=== PATIENT | female | born 1965 | race Caucasian/White ===

== ENCOUNTER → 2017-09-21 11:06 | Outpatient (CLI) | payer OTHER, SELFPAY ==
[2017-09-21 13:03] LABS: T4 Free Direct 1.14 ng/dL (0.76-1.46); Thyroid Stim Hormone (TSH) 0.15 uIU/mL (0.358-3.74)
== END ==
PROVIDERS: Family Provider Family Medicine; PCP Family Medicine; Visit Provider Family Medicine
DX: E03.9 Hypothyroidism, unspecified (principal); F41.9 Anxiety disorder, unspecified
CPT/HCPCS: 36415; 84439; 84443

== ENCOUNTER → 2017-12-16 11:02 | Outpatient (CLI) | payer OTHER, SELFPAY ==
[2017-12-16 12:52] LABS: T4 Free Direct 1.03 ng/dL (0.76-1.46); Thyroid Stim Hormone (TSH) 2.07 uIU/mL (0.358-3.74)
== END ==
PROVIDERS: Nurse Practitioner Family; Family Provider Family Medicine; PCP Family Medicine; Referring Provider Family Medicine; Visit Provider Family Medicine
DX: E03.9 Hypothyroidism, unspecified (principal)
CPT/HCPCS: 36415; 84439; 84443

== ENCOUNTER → 2018-10-17 11:37 | Outpatient (CLI) | payer OTHER, SELFPAY ==
[2018-10-17 11:07] VITALS: BMI 21.6
[2018-10-17 13:25] LABS: Anion Gap 7 (5-15); BUN 15 mg/dL (7-18); BUN/Creat Ratio 17.7 RATIO (10-20); Calcium,Total 8.8 mg/dL (8.5-10.1); Chloride 106 mmol/L (98-107); Creatinine, Serum 0.85 mg/dL (0.55-1.02); EST Glomerular Filtration Rate 74 mL/min (>60); Est Glom Filt Rate - Afr Amer 90 mL/min (>60); Glucose 85 mg/dL (74-106); Potassium 3.9 mmol/L (3.5-5.1); Sodium Level 141 mmol/L (136-145); Thyroid Stim Hormone (TSH) 1.68 uIU/mL (0.358-3.74)
== END ==
PROVIDERS: Family Provider Family Medicine; PCP Family Medicine; Visit Provider Family Medicine
DX: E03.9 Hypothyroidism, unspecified (principal)
CPT/HCPCS: 36415; 80048; 84443

== ENCOUNTER → 2018-10-19 11:46 | Outpatient (CLI) | payer OTHER, SELFPAY ==
[2018-10-17 11:07] VITALS: BMI 21.6
--- NOTE | 2018-10-19 11:50 | BI_ITS ---
MAMMOGRAPHY - BILATERAL SCREENING REASON FOR EXAM: Female, 53 years old. Routine annual screening examination. PERTINENT HISTORY: Non-contributory. TECHNIQUE: Digital bilateral breast loi (3D mammographic acquisition) in the CC and MLO projections. 2-D mediolateral oblique (MLO) and craniocaudad (CC) views of both breasts were obtained. CAD: Full Field Digital Mammography with Computer Added Detection was performed. COMPARISON: Comparison is made with prior study in August 23, 2016 and July 24, 2015. FINDINGS: Breast Composition: The breasts are heterogeneously dense, which may obscure small masses. There are no dominant masses or suspicious calcifications. No other significant abnormalities are identified. There has been no significant change since the prior study. BI/SCREEN MAMM (CAD) W/LOI BILAT IMPRESSION: Stable bilateral screening mammogram. Yearly follow-up mammogram recommended. (A) ASSESSMENT CATEGORY: BIRADS Category 1: Negative. A letter regarding these results will be sent to the patient by the facility within 30 days. Approximately 10% of breast cancers are not detected by mammography. A normal mammogram should not delay biopsy of a clinically suspicious abnormality. [id number] Electronically Signed: Андрей Quan, at 13:54 EDT , Service support ,
== END ==
PROVIDERS: Family Provider Family Medicine; PCP Family Medicine; Referring Provider Family Medicine; Visit Provider Family Medicine
DX: Z12.31 Encounter for screening mammogram for malignant neoplasm of breast (principal)
CPT/HCPCS: 77063; 77067

== ENCOUNTER → 2019-11-07 14:25 | Outpatient (CLI) | payer OTHER, SELFPAY ==
[2019-11-07 14:04] VITALS: BMI 21.6
[2019-11-07 15:52] LABS: Anion Gap 5 (5-15); BUN 17 mg/dL (7-18); BUN/Creat Ratio 20.1 RATIO (10-20); Calcium,Total 9.3 mg/dL (8.5-10.1); Chloride 104 mmol/L (98-107); Creatinine, Serum 0.84 mg/dL (0.55-1.02); EST Glomerular Filtration Rate 74 mL/min (>60); Est Glom Filt Rate - Afr Amer 90 mL/min (>60); Glucose 103 mg/dL (74-106); Potassium 3.8 mmol/L (3.5-5.1); Sodium Level 138 mmol/L (136-145); T4 Free Direct 1.07 ng/dL (0.76-1.46); Thyroid Stim Hormone (TSH) 2.41 uIU/mL (0.358-3.74)
== END ==
PROVIDERS: PCP Family Medicine; Referring Provider Family Medicine; Visit Provider Family Medicine
DX: E03.9 Hypothyroidism, unspecified (principal)
CPT/HCPCS: 36415; 80048; 84439; 84443

== ENCOUNTER → 2020-11-12 14:23 | Outpatient (CLI) | payer OTHER, SELFPAY ==
[2020-11-12 16:02] LABS: Anion Gap 6 (5-15); BUN 24 mg/dL (7-18); BUN/Creat Ratio 23.5 RATIO (10-20); Calcium,Total 9.5 mg/dL (8.5-10.1); Chloride 107 mmol/L (98-107); Creatinine, Serum 1.02 mg/dL (0.55-1.02); EST Glomerular Filtration Rate 59 mL/min (>60); Est Glom Filt Rate - Afr Amer 72 mL/min (>60); Glucose 131 mg/dL (74-106); Sodium Level 140 mmol/L (136-145); T4 Free Direct 1.11 ng/dL (0.76-1.46); Thyroid Stim Hormone (TSH) 0.83 uIU/mL (0.358-3.74)
== END ==
PROVIDERS: PCP Family Medicine; Referring Provider Family Medicine; Visit Provider Family Medicine
DX: E03.9 Hypothyroidism, unspecified (principal)
CPT/HCPCS: 36415; 80048; 84439; 84443

== ENCOUNTER 2021-05-26 10:23 | Outpatient (CLI) | payer OTHER, SELFPAY ==
--- NOTE | 2021-05-26 10:27 | BI_ITS ---
MAMMOGRAPHY - BILATERAL SCREENING 3-D TOMOSYNTHESIS REASON FOR EXAM: Female, 56 years old. screening PERTINENT HISTORY: No significant family history. TECHNIQUE: 2-D mammograms and 3-D Tomosynthesis of the breast (s) were performed. CAD was performed. COMPARISON: None. FINDINGS: The breast composition is composed of scattered fibroglandular density. Scattered benign calcifications are seen. No dense spiculated masses or suspicious microcalcifications are identified. No architectural distortion is identified. There is no skin thickening or retraction. There has been no significant change since the prior study. BI/SCRN MAMM (CAD)W/LOI BILAT IMPRESSION: No mammographic signs of malignancy. Routine yearly mammograms recommended. ASSESSMENT CATEGORY: BIRADS Category 1: Negative. A letter regarding these results will be sent to the patient by the facility within 30 days. FOLLOW UP RECOMMENDATION: Yearly follow up mammogram recommended. (A) Approximately 10% of breast cancers are not detected by mammography. A normal mammogram should not delay biopsy of a clinically suspicious abnormality. Electronically Signed: Cirilo Craig MD at 11:28 EDT ,
== END 2021-05-26 23:59 | disposition home or self-care (01) ==
LOC: OPBI 10:26
PROVIDERS: PCP Family Medicine; Referring Provider Family Medicine; Visit Provider Family Medicine
DX: Z12.31 Encounter for screening mammogram for malignant neoplasm of breast (principal)
CPT/HCPCS: 77063; 77067

== ENCOUNTER 2021-08-22 10:42 | Emergency (ER) | payer OTHER, SELFPAY ==
[2021-08-22 10:43] VITALS: BP 179/91; PULSE 101; RESP 16; TEMP 36.8; O2SAT 99; BMI 21.6
--- NOTE | 2021-08-22 11:06 | RAD_ITS ---
STUDY: X-RAY - RIGHT SHOULDER REASON FOR EXAM: Female, 56 years old. Pain TECHNIQUE: 5 view(s) of the shoulder. COMPARISON: None. FINDINGS: Normal glenohumeral articulation. Normal acromioclavicular joint. Normal acromion. Normal humeral head and visualized proximal humerus. There is periarticular soft tissue calcification consistent with a calcific tendinitis. Normal visualized pulmonary apex. RAD/Shoulder min 2 Views IMPRESSION: Calcific tendinitis. Electronically Signed: Payal Ardon MD at 12:47 EDT ,
--- NOTE | 2021-08-22 11:06 | EDS_ITS ---
HPI History of Present Illness Chief Complaint: Upper Extremity Injury Narrative Narrative: 56-year-old female presenting with pain in the right shoulder. This is nontraumatic. Patient states that has been going on for couple of days. Patient states the pain is in the anterior shoulder and sometimes radiates to the deltoid. She states she thought she may have slept on it wrong. Sometimes she feels as if her shoulder is just hanging. She has difficulty with range of motion. No numbness. No neck pain. Patient does state that she had a fall a year ago and injured the shoulder and it felt similar. She denies any injury currently. [facility] Medical History Allergies Anemia Anxiety and depression Back pain Blood transfusion without reported diagnosis H/O emotional problems History of blood clots HTN (hypertension) Hypothyroid Knee pain Neoplasm of unspecified behavior of digestive system Thyroid disease Home Medications diazepam 5 mg tablet (Valium) 5 mg PO QHS PRN sleep #5 tabs 08/29/20 [Rx Last Taken Unknown] levothyroxine 88 mcg capsule 88 mcg PO QDAY #90 caps 05/13/21 [Rx Last Taken Unknown] lorazepam 0.5 mg tablet 0.5 mg PO DAILY PRN anxiety #30 tabs 05/13/21 [Rx Last Taken Unknown] Allergy/AdvReac Type Severity Reaction Status Date / Time venlafaxine [From Effexor] Allergy Unknown Heart Verified 05/13/21 10:08 Racing Family History Father Lung cancer Mother Parkinson disease Sister Thyroid disorder Other Anxiety Depression Family history of skin cancer History of blood clots History of blood transfusion Hypertension Surgical History History of History of D&C History of hernia repair History of tonsillectomy Hx of knee surgery Social History Smoking Status: Never smoker alcohol intake: never substance use type: does not use what type of physical activity do you participate in: walking frequency: 1-2 times per week additional social history: Does Take Aspirin Does Take Ibuprofen As Needed EXAM Physical Exam Const Vital Signs: 07/16/22 10:43 Temperature 98.3 F Temperature Source Temporal Pulse Rate 101 H Respiratory Rate 16 Blood Pressure 179/91 H Blood Pressure Mean 120 Pulse Ox 99 Oxygen Delivery Method Room Air Positive well nourished General Appearance ED: NAD HEENT Reports moist mucous membranes normocephalic and atraumatic Eyes PERRL Neck full ROM Chest Wall inspection of chest normal and palpation of chest normal Resp normal respiratory effort Cardio regular rate and regular rhythm Back/Spine Cervical Spine: Negative for cervical spine tenderness Extremity Extremity Narrative: Tenderness to palpation over the right anterior shoulder along the bicipital groove. There is no pain or palpated over the deltoid although she reports the feeling of pain in this area. No tenderness in the trapezius. Cervical spine is nontender. Limited range of motion in flexion, extension, abduction. Neuro oriented x3 and CN's II-XII intact bilaterally Sensorium / Orientation: alert Psych mental status grossly normal Skin Lesions: no lesions Rashes: no rashes MDM MDM MDM Narrative Medical decision making narrative: Patient with pain in the anterior right shoulder. She does not want a thing for pain. I obtained an x-ray of the right shoulder which on my interpretation shows no fracture or subluxation. Radiologist read just as a calcific tendinitis. Patient counseled on findings. I will give her an orthopedic referral. She is to use NSAIDs and Tylenol. Ice and rest. Impression: 1. Calcific tendinitis Lab Data Attestation: I reviewed the patient's lab results. Discharge Plan Triage Chief Complaint: Upper Extremity Injury ED Provider: Ruslan Colon Dx/Rx/DC Orders Instructions: ED Tendonitis Prescriptions: No Action diazepam [Valium] 5 mg tablet 5 mg PO QHS PRN (Reason: sleep) Qty: 5 0RF Rx Instructions: 5 tabs (five) lorazepam 0.5 mg tablet 0.5 mg PO DAILY PRN (Reason: anxiety) Qty: 30 1RF levothyroxine 88 mcg capsule 88 mcg capsule 88 mcg PO QDAY Qty: 90 2RF Primary Care Provider: Alex Gomez Referrals: Alex Gomez DO [Primary Care Provider] - Rivas Garcia MD [STAFF PHYSICIAN] - As soon as possible Disposition Disposition: Home, Self Care
== END 2021-08-22 13:01 | disposition home or self-care (01) ==
PROVIDERS: Emergency Provider Student in an Organized Health Care Education/Training Program; PCP Family Medicine; Visit Provider Student in an Organized Health Care Education/Training Program
DX: M75.31 Calcific tendinitis of right shoulder (principal); F41.9 Anxiety disorder, unspecified; F32.A Depression, unspecified; Z86.718 Personal history of other venous thrombosis and embolism; E03.9 Hypothyroidism, unspecified; Z79.899 Other long term (current) drug therapy
CPT/HCPCS: 73030; 99282

== ENCOUNTER 2021-09-15 15:00 | Outpatient (RCR) | payer OTHER, SELFPAY ==
--- NOTE | 2021-08-28 14:22 | HP.PTEVAL_ITS ---
Patient's Visit Information PAULINE ALLEN is a 56 year old F referred to Physical Therapy by Dr. Rivas Garcia MD with a diagnosis of R sprain of RC, weakness, R shld pain. Date of Evaluation: 08/28/21 Physical Therapist: CHELSIE Whitaker - Visit Plan Frequency: 2x /Week Duration: 6 Weeks Plan: 2-3X/ week for 4-6 weeks for R shoulder AAROM/PROM/AROM, scapular strength, RC strength, MT with HEP. HEP: green mid rows - Subjective Her R shoulder pain was diagnosed with calcific tendonitis. She fell last year and landed on her shoulder and thinks that it stems from that. She was told her bursea was burst but RC was in tact. She woke up randomly this weekend with pain and not sure what she did. Sometimes she does wake up with arms overhead and hard to bring back down. She ended up in the ER Tuesday morning cause her Dr said to go due to her sx. Her R shoulder was really swollen and it was hard to move her shoulder and thought it could have been dislocated. They took some x-rays and then she went to see an ortho surgeon. Dr Garcia did the x-rays and he said sprain of R RC, weakness, and pain in R shoulder. Swelling has gone down. - Pain r shoulder pain Pain Intensity (Out of 10): 0 Pain Intensity Range: 3 Comment: with movement - Objective R handed: R 55# and L 59#. C-spine AROM: WFL c-spine AROM all planes. UE AROM: R shoulder flexion 140 degrees and pain at end range and L shoulder degrees. shoulder IR T8 B. B shoulder ER R 50 degrees and L 55 degrees. 163 R shoulder AROM ABD and L shoulder 180 degrees. UE MMT: R shoulder flex 9# and L 13.5#, R shoulder abd 7.2# and L 11.3#, and R shoulder ER 9.6# and L 13.1#. palpation: tender under the R acromion. no tenderness along the bicep tendon. - Balance/Special Test Scores Quick DASH Score: 56.8175 - Goals Goal 1:: I HEP Goal Time Frame: 4-6 Weeks Goal 2:: Increase R shoulder strength (at time of the eval: UE MMT: R shoulder flex 9# and L 13.5#, R shoulder abd 7.2# and L 11.3#, and R shoulder ER 9.6# and L 13.1#). Goal Time Frame: 4-6 Weeks Goal 3:: Increase R shoulder elevation (at the time of the eval: R shoulder flexion 140 degrees and pain at end range and L shoulder [id number] degrees. shoulder IR T8 B. B shoulder ER R 50 degrees and L 55 degrees. 163 R shoulder AROM ABD and L shoulder 180 degrees) Goal Time Frame: 4-6 Weeks Goal 4:: Decrease R shoulder pain to 0/10 with normal ADL's Goal Time Frame: 4-6 Weeks - Rehabilitation Potential Rehabilitation Potential: Good - Anticipated Interventions For the Purpose of:: To decrease pain, To decrease swelling/inflammation, To improve muscle performance and motor function, To improve ability to perform ADL's, To increase tolerance to activity/condition/position, To improve performance and independence with ADL's, To decrease level of supervision to perform tasks, To improve ability of physical actions for home/community/work/leisure, To improve health of tissue, To decrease soft tissue restriction, To increase flexibility/ROM Therapeutic Exercise to Include: Strength training, Postural training, Flexibilty training, Passive ROM, Active ROM, Scapular Strength/Stabilization For the Purpose of:: To decrease pain, To decrease swelling/inflammation, To increase ROM, To improve nutrient delivery to tissue, To improve muscle performance and motor function, To improve ability to perform ADL's, To increase tolerance to activity/condition/position, To improve performance and independence with ADL's, To decrease level of supervision to perform tasks, To improve ability of physical actions for home/community/work/leisure, To improve health of tissue, To decrease soft tissue restriction, To increase flexibility/ROM Manual Therapy Techniques to Include: Mobilization, Passive ROM For the Purpose of:: To decrease pain, To increase ROM, To improve nutrient delivery to tissue Thank you for the opportunity to evaluate your patient. For Medicare and Medicare HMO plans, please review the plan of care and approve it. It will need to be FAXED BACK to us at [phone] for Medicare purposes. For Medicare only, by signing this I certify the plan of care. Please let me know if there are questions or concerns regarding this plan of care. Physician Signature:____ Date:
--- NOTE | 2021-11-02 10:58 | HP.PT.NRP ---
PAULINE ALLEN was seen in my office for initial evaluation on 08/28/21. The following Plan of Care was established for this patient: Initial Frequency: 2x /Week Initial Duration: 6 Weeks For the Purpose of:: To decrease pain, To decrease swelling/inflammation, To improve muscle performance and motor function, To improve ability to perform ADL's, To increase tolerance to activity/condition/position, To improve performance and independence with ADL's, To decrease level of supervision to perform tasks, To improve ability of physical actions for home/community/work/leisure, To improve health of tissue, To decrease soft tissue restriction, To increase flexibility/ROM Therapeutic Exercise to Include: Strength training, Postural training, Flexibilty training, Passive ROM, Active ROM, Scapular Strength/Stabilization For the Purpose of:: To decrease pain, To decrease swelling/inflammation, To increase ROM, To improve nutrient delivery to tissue, To improve muscle performance and motor function, To improve ability to perform ADL's, To increase tolerance to activity/condition/position, To improve performance and independence with ADL's, To decrease level of supervision to perform tasks, To improve ability of physical actions for home/community/work/leisure, To improve health of tissue, To decrease soft tissue restriction, To increase flexibility/ROM Manual Therapy Techniques to Include: Mobilization, Passive ROM For the Purpose of:: To decrease pain, To increase ROM, To improve nutrient delivery to tissue This patient was last seen in our office 09/15/21. Pertinent comments regarding their Physical therapy will appear below: [facility] PT as pt did not schedule additional visits. At this point I will be discontinuing this patient from physical therapy. I would be happy to see this patient again in the future if found appropriate by the physician. Thank you! Fela Schneider, MPT Balance/Gait/Functional tests - Balance/Special Test Scores Quick DASH Score: 56.8186
== END 2021-09-15 19:00 | disposition home or self-care (01) ==
LOC: PT 15:00
PROVIDERS: PCP Family Medicine; Referring Provider Specialist; Visit Provider Specialist
DX: S43.421D Sprain of right rotator cuff capsule, subsequent encounter (principal); R53.1 Weakness; M25.511 Pain in right shoulder
CPT/HCPCS: 97110; 97161

== ENCOUNTER → 2021-11-10 | Outpatient (CLI) | payer OTHER, SELFPAY ==
[2021-11-10 12:16] LABS: Hematocrit 42.2 % (37-47); Hemoglobin 13.7 g/dL (12.0-15.0); Mean Corp Hgb Conc 32.5 g/dL (32-36); Mean Corpuscular Hgb 29.3 pg (27.0-32.0); Mean Corpuscular Volume 90.4 fL (81-99); Mean Platelet Vol. 9.5 fl (6.2-12.0); Platelet Count 315 K/mm3 (150-450); RBC Distribution Width CV 12.9 % (11.6-14.6); RBC Distribution Width SD 42.5 fl (35.1-43.9); Red Blood Count 4.67 M/mm3 (4.2-5.4); White Blood Count 5.2 K/mm3 (4.4-11.0)
[2021-11-10 14:28] LABS: Anion Gap 4 (5-15); BUN 16 mg/dL (7-18); BUN/Creat Ratio 17.9 RATIO (10-20); Calcium,Total 9.6 mg/dL (8.5-10.1); Chloride 106 mmol/L (98-107); EST Glomerular Filtration Rate 69 mL/min (>60); Est Glom Filt Rate - Afr Amer 83 mL/min (>60); Glucose 91 mg/dL (74-106); Potassium 4.5 mmol/L (3.5-5.1); Sodium Level 140 mmol/L (136-145); Thyroid Stim Hormone (TSH) 1.68 uIU/mL (0.358-3.74)
[2021-11-15 18:07] LABS: Chlamydia By Nucleic Acid AMP Negative (Negative)
[2021-11-16 16:17] LABS: Gonococcus By Nucleic Acid AMP Negative (Negative)
[2021-11-16 16:18] LABS: HPV Reflexed? NOT INDICATED
== END | disposition home or self-care (01) ==
LOC: BIMLAB 10:08
PROVIDERS: PCP Family Medicine; Referring Provider Family Medicine; Visit Provider Family Medicine
DX: Z01.419 Encounter for gynecological examination (general) (routine) without abnormal findings (principal); E03.9 Hypothyroidism, unspecified
CPT/HCPCS: 36415; 80048; 84443; 85027; 87491; 87591; 88175; G0145

== ENCOUNTER → 2022-07-02 | Outpatient (CLI) | payer OTHER, SELFPAY ==
--- NOTE | 2022-07-02 09:11 | BI_ITS ---
MAMMOGRAPHY - BILATERAL SCREENING REASON FOR EXAM: Female, 57 years old. Routine annual screening examination. PERTINENT HISTORY: Non-contributory. TECHNIQUE: Digital bilateral breast loi (3D mammographic acquisition) in the CC and MLO projections. 2-D mediolateral oblique (MLO) and craniocaudad (CC) views of both breasts were obtained. CAD: Full Field Digital Mammography with Computer Added Detection was performed. COMPARISON: Screening mammogram from 05/26/2021, 10/19/2018. FINDINGS: Breast Composition: There are scattered areas of fibroglandular density. There are no dominant masses or suspicious calcifications. No other significant abnormalities are identified. BI/SCRN MAMM (CAD)W/LOI BILAT IMPRESSION: Stable bilateral screening mammogram. Yearly follow-up mammogram recommended. (A) ASSESSMENT CATEGORY: BIRADS Category 1: Negative. A letter regarding these results will be sent to the patient by the facility within 30 days. Approximately 10% of breast cancers are not detected by mammography. A normal mammogram should not delay biopsy of a clinically suspicious abnormality. Electronically Signed: Hilario Zambrano DO at 16:30 EDT ,
== END | disposition home or self-care (01) ==
LOC: OPBI 09:11
PROVIDERS: PCP Family Medicine; Referring Provider Family Medicine; Visit Provider Family Medicine
DX: Z12.31 Encounter for screening mammogram for malignant neoplasm of breast (principal)
CPT/HCPCS: 77063; 77067

== ENCOUNTER → 2023-01-05 | Outpatient (CLI) | payer OTHER, SELFPAY ==
[2023-01-05 13:07] LABS: Anion Gap 7 (5-15); BUN 20 mg/dL (7-18); BUN/Creat Ratio 20.8 RATIO (10-20); Calcium,Total 8.7 mg/dL (8.5-10.1); Chloride 105 mmol/L (98-107); Creatinine, Serum 0.96 mg/dL (0.55-1.02); EST Glomerular Filtration Rate 63 mL/min (>60); Est Glom Filt Rate - Afr Amer 76 mL/min (>60); Glucose 97 mg/dL (74-106); Potassium 4.2 mmol/L (3.5-5.1); Sodium Level 141 mmol/L (136-145); Thyroid Stim Hormone (TSH) 6.89 uIU/mL (0.358-3.74)
== END | disposition home or self-care (01) ==
LOC: BIMLAB 10:21
PROVIDERS: PCP Family Medicine; Referring Provider Family Medicine; Visit Provider Family Medicine
DX: E03.9 Hypothyroidism, unspecified (principal)
CPT/HCPCS: 36415; 80048; 84443

== ENCOUNTER → 2023-07-05 | Outpatient (CLI) | payer OTHER, SELFPAY ==
--- NOTE | 2023-07-05 10:06 | BI_ITS ---
MAMMOGRAPHY - BILATERAL SCREENING REASON FOR EXAM: Female, 58 years old. Routine annual screening examination. PERTINENT HISTORY: Non-contributory. TECHNIQUE: Digital bilateral breast loi (3D mammographic acquisition) in the CC and MLO projections. 2-D mediolateral oblique (MLO) and craniocaudad (CC) views of both breasts were obtained. CAD: Full Field Digital Mammography with Computer Added Detection was performed. COMPARISON: Comparison is made with prior study dated July 02, 2022 and May 26, 2021. FINDINGS: Breast Composition: There are scattered areas of fibroglandular density. There are no dominant masses or suspicious calcifications. No other significant abnormalities are identified. There has been no significant change since the prior study. BI/SCRN MAMM (CAD)W/LOI BILAT IMPRESSION: Stable bilateral screening mammogram. Yearly follow-up mammogram recommended. (A) ASSESSMENT CATEGORY: BIRADS Category 1: Negative. A letter regarding these results will be sent to the patient by the facility within 30 days. Approximately 10% of breast cancers are not detected by mammography. A normal mammogram should not delay biopsy of a clinically suspicious abnormality. [id number] Electronically Signed: Андрей Quan MD at 12:51 EDT ,
== END | disposition home or self-care (01) ==
LOC: OPBI 10:05
PROVIDERS: PCP Family Medicine; Visit Provider Family Medicine
DX: Z12.31 Encounter for screening mammogram for malignant neoplasm of breast (principal)
CPT/HCPCS: 77063; 77067

== ENCOUNTER → 2024-01-10 | Outpatient (CLI) | payer OTHER, SELFPAY ==
[2024-01-10 12:49] LABS: Anion Gap 7 (5-15); BUN 20 mg/dL (7-18); BUN/Creat Ratio 22.4 RATIO (10-20); Calcium,Total 9.7 mg/dL (8.5-10.1); Chloride 104 mmol/L (98-107); Creatinine, Serum 0.89 mg/dL (0.55-1.02); EST Glomerular Filtration Rate 69 mL/min (>60); Est Glom Filt Rate - Afr Amer 83 mL/min (>60); Glucose 97 mg/dL (74-106); Potassium 4.6 mmol/L (3.5-5.1); Sodium Level 137 mmol/L (136-145); T4 Free Direct 1.19 ng/dL (0.76-1.46); Thyroid Stim Hormone (TSH) 0.402 uIU/mL (0.358-3.740)
== END | disposition home or self-care (01) ==
LOC: BIMLAB 10:31
PROVIDERS: PCP Family Medicine; Referring Provider Family Medicine; Visit Provider Family Medicine
DX: E03.9 Hypothyroidism, unspecified (principal)
CPT/HCPCS: 36415; 80048; 84439; 84443

== ENCOUNTER → 2024-07-23 | Outpatient (CLI) | payer BC, SELFPAY ==
--- NOTE | 2024-07-23 08:30 | BI_ITS ---
EXAM: SCRN MAMM (CAD)W/LOI BILAT DATE: 07/23/2024 CLINICAL HISTORY: F, Age 59 y/o , SCREENING No family history. BREAST CANCER RISK ASSESSMENT: Not assessed. TECHNIQUE: Bilateral screening digital breast tomosynthesis with 2D and 3D images. Computer aided detection. COMPARISON: Prior exam(s) dated July 05, 2023.. FINDINGS: TISSUE DENSITY: The breast tissue is composed of scattered areas of fibroglandular density. Bilateral Breast Mammographic Findings: No significant masses, calcifications or other abnormalities are identified. No suspicious masses, areas of developing architectural distortion, or suspicious calcifications. There has been no significant interval change. BI/SCRN MAMM (CAD)W/LOI BILAT IMPRESSION: OVERALL FINAL ASSESSMENT: BIRADS 1 NEGATIVE RECOMMENDATION: Routine annual follow-up in 1 Year A letter with findings and recommendations will be mailed to the patient. Reading Location: [place] [id number]
--- OUTSIDE RECORDS SUMMARY | 2024-07-23 10:29 | XMS RPT_ITS | CCD ---
Author Organization [facility] CliniSyms Care Team Providers Care Commercial Lines Underwriter Name Role Phone JAIME RAJPUT Attending Unavail able JESSICA GOMEZ Primary Care Unavailable Jessica Gomez Primary Care Provider Dr. Jessica Gomez Primary Care Provider Dr. Jessica Gomez Attending Provider Dr. Jessica Gomez Referring Provider Dr. Jessica Gomez Primary Care Provider [phone] Dr. Jessica Gomez Attending Provider [phone] Dr. Jessica Gomez Referring Provider [phone] Dr. Jessica Gomez Primary Care Provider [phone] Dr. Jessica Gomez Attending Provider Dr. Jessica Gomez Referring Provider [phone] Dr. Jessica Gomez Primary Care Provider [phone] Dr. Jessica Gomez Attending Provider [phone] Dr. Jessica Gomez Referring Provider [phone] Dr. Jessica Gomez Primary Care Provider [phone] Dr. Jessica Gomez Attending Provider [phone] Dr. Jessica Gomez Referring Provider Dr. Jessica Gomez DO Primary Care Provider [phone] Dr. Jessica Gomez DO Attending Provider [phone] Dr. Jessica Gomez DO Referring Provider [phone] Jessica Gomez Referring Unavailable Jessica Gomez Primary Care Unavailable Jessica Gomez Attending Unavailable Brown, Jessica R Referring Unavailable Brown, Jessica R Primary Care Unavailable BrownJessica R Attending Unavailable Brown, Jessica R Referring Unavailable Brown, Jessica R Primary Care Unavailable Brown, Jessica R Attending Unavailable Brown, Jessica R Referring Unavailable Brown, Jessica R Primary Care Unavailable BrownJessica R Attending Unavailable Allergies Allergy Classification Reported Allergen(s) Allergy Type Date of Onset Reaction(s) Facility (3 sources) venlafaxine; Translations: [VENLAFAXINE HCL] Drug Allergy 12-31-2005 [facility] Repository (6 sources) venlafaxine Drug Allergy 05-13-2021 Heart Racing [facility] (1 source) venlafaxine Drug Allergy 07-17-2024 [facility] Repository Medications Current Medications Medication Drug Class(es) Dates Sig (Normalized) Sig (Original) levothyroxine sodium 0.1 mg oral capsule (20 sources) l-Thyroxine Start: 01-06-2023 End: 07-10-2024 take 1 capsule by mouth once daily Levothyroxine 100 mcg capsule Active 100 ug PO daily July 10, 2024 8:13am Start: 01-06-2023 levothyroxine 88 mcg capsule Active 100 MCG PO daily January 06, 2023 8:28am Start: 01-09-2020 take 1 tablet by carlee th once daily Euthyrox 88 mcg tablet Take 88 mcg by mouth daily . 0 01/09/2020 Active Start: 09-23-2017 End: 01-06-2023 take 1 capsule by mouth once daily Levothyroxine 88 mcg capsule Discontinued 88 ug PO daily November 14, 2019 1:33pm November 12, 2020 2:15pm Start: 07-28-2017 End: 10-17-2018 take 1 capsule by mouth once daily Levothyroxine 100 mcg capsule Discontinued 100 ug PO daily July 28, 2017 1:01pm October 17, 2018 11:12am LORazepam 0.5 mg oral tablet (20 sources) Benzodiazepine Start: 11-12-2019 End: 07-17-2024 take 1 tablet by mouth once daily as needed for anxiety Lorazepam 0.5 mg tablet Active 0.5 mg PO DAILY as needed for anxiety July 17, 2024 10:22am Start: 09-21-2017 End: 10-27-2018 take 1 tablet by mouth every eight hours as needed Lorazepam 0.5 mg tablet Discontinued 0.5 mg PO .EVERY 8 HOURS as needed September 21, 2017 12:00am October 27, 2018 9:37am Completed/Discontinued Medications Medication Drug Class(es) Dates Sig (Normalized) Sig (Original) amoxicillin 875 mg / clavulanate 125 mg oral tablet (6 sources) Penicillin-class Antibacterial Start: 01-18-2019 End: 11-07-2019 Amoxicillin-Pot Clavulanate 875-125 mg tablet Discontinued 1 {tbl} PO TWICE A DAY January 18, 2019 1:00am November 07, 2019 2:03pm Start: 01-18-2019 End: 11-07-2019 take 1 tablet by mouth twice daily Amoxicillin-Pot Clavulanate Discontinued 1 TABLET PO TWICE A DAY January 18, 2019 12:00am November 07, 2019 1:03pm azithromycin 250 mg oral tablet (6 sources) Macrolide Antimicrobial Start: 10-27-2018 End: 01-18-2019 take 2-5 tablets by mouth once daily Azithromycin 250 mg tablet Discontinued 0 PO .COMPLEX October 27, 2018 12:00am January 18, 2019 9:30am take 500 mg today (day 1), then 250 mg for 4 days (days 2-5) PO diazePAM 5 mg oral tablet (9 sources) Benzodiazepine Start: 08-29-2020 End: 07-12-2023 take 1 tablet by mouth at bedtime as needed for sleep Diazepam (Valium) 5 mg tablet Discontinued 5 mg PO AT BEDTIME as needed for sleep June 30, 2022 11:16am July 12, 2023 10:06am 5 tabs (five) sertraline 50 mg oral tablet (6 sources) Serotonin Reuptake Inhibitor Start: 11-07-2019 End: 11-12-2020 take 1 tablet by mouth once daily Sertraline 50 mg tablet Discontinued 50 mg PO DAILY November 07, 2019 12:00am November 12, 2020 2:04pm Problems Problem Classification Problem Date Documented Da te Episodic/Chronic Acquired foot deformities (6 sources) Tailor's bunion of left foot; Translations: [Bunionette of left foot] 09-21-2017 Episodic Acute bronchitis (6 sources) Acute bronchitis; Translations: [Acute bronchitis, unspecified] 10-27-2018 Episodic Allergic reactions (6 sources) Allergic condition; Translations: [Allergy, unspecified, initial encounter] 08-29-2020 Episodic Anxiety disorders (12 sources) Mixed anxiety and depressive disorder; Translations: [Anxiety disorder, unspecified] Onset: 01-10-2024 Chronic Deficiency and other anemia (6 sources) Anemia; Translations: [Anemia, unspecified] 08-29-2020 Episodic Headache; including migraine (1 source) Headache; Translations: [Nonintractable headache, unspecified chronicity pattern, unspecified headache type] Episodic Nausea and vomiting (1 source) Nausea; Translations: [Nausea] Episodic Neoplasms of unspecified nature or uncertain behavior (12 sources) Neoplasm of digestive system; 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] 08-31-2020 Episodic Comment on above: 1.5 CM ULCERATED NOD ULAR LESION LOWER LIP JUST TO THE RIGHT OF THE MIDLINE INVOLVING THE GOLDEN BORDER Other aftercare (7 sources) Patient encounter status; Translations: [Encounter for other specified aftercare] 09-21-2017 Episodic Other circulatory disease (1 source) Elevated blood pressure; Translations: [Elevated blood pressure reading] Episodic Other screening for suspected conditions (not mental disorders or infectious disease) (1 source) Encounter for screening mammogram for malignant neoplasm of breast; Translations: [Encounter for screening mammogram for malignant neoplasm of breast] Onset: 07-17-2024 Episodic Other upper respiratory disease (1 source) Nasal discharge; Translations: [Rhinorrhea] Episodic Phlebitis; thrombophlebitis and thromboembolism (6 sources) H/O: thrombosis; Translations: [Personal history of other venous thrombosis and embolism] 09-21-2017 Episodic Residual codes; unclassified (1 source) Generalized aches and pains; Translations: [Body aches] Episodic Residual codes; unclassified (6 sources) Family history of malignant neoplasm of skin; Translations: [Family history of malignant neoplasm of other organs or systems] 08-31-2020 Episodic Screening and history of mental health and substance abuse codes (9 sources) History of clinical finding in subject; Translations: [Personal history of other mental and behavioral disorders] Episodic Comment on above: Is seeing counselor- Debbie Hurst Thyroid disorders (12 sources) Hypothyroidism; Translations: [Hypothyroidism, unspecified] Onset: 02-09-2024 Chronic Results Test Name Value Interpretation Reference Range Facility Internal Medicine Office Vis mamie 07-17-2024 Internal Medicine Office Visit [facility] [address] [place] [address] [place] [address] OFFICE VISIT Date of Service: 07/17/24 MR#: [id number] Acct: [id number] Name: MOLLY MCCOY Rep #: [id number] : 1965 Provider: Dr. Jessica vasquez, DO Age/Sex: 59/F Location: [facility] Status: Signed Intake Vital Signs 01/10/24 09:46 01/10/24 10:40 07/17/24 10:09 Height 5 ft 5 in 5 ft 5 in 5 ft 5 in Weight: 133 lb 130 lb BMI 22.1 21.6 BP 140/90 H 150/82 H Blood Pressure Location Lt brachial Lt brachial Position Sitting Sitting Respiration 16 18 Pulse 100 106 H Pulse Source Monitor Monitor Temp 98.6 F 98.6 F Temp Source Temporal Temporal Pulse Oximetry (%) 97 98 Oxygen Delivery Method room air room air Intake Visit Reasons: 6 M FU Chief Complaint: 6 M FU Camera Supervisor Required: No Is patient in pain?: No Allergies venlafaxine (From Effexor) Allergy (Unknown, Verified 07/17/24 09:57) Heart Racing Medications ???Medication ???Instructions ???Recorded ???Confirmed ???Type levothyroxine 100 mcg capsule 100 mcg PO QDAY #90 caps 07/10/24 07/17/24 Rx lorazepam 0.5 mg tablet 0.5 mg PO DAILY PRN anxiety #30 07/17/24 Rx tabs Nurse's Note: needs refills. PH9/INDIGO-7 done. Pt has had a spot on R cheek, that has been there for some time. Pt has not noticed, change in size,shape, or color. Pt denies crusting. Pt states if she picks at it , it will bleed. It does occasionally itch. has tried treating w/ oils, salves. Pt states it never goes away. Denies pain, or seeping. [facility] Medical History Neoplasm of unspecified behavior of digestive system Anxiety and depression Anemia Allergies Back pain Thyroid disease Knee pain HTN (hypertension) H/O emotional problems Blood transfusion without reported diagnosis History of blood clots Hypothyroid Surgical History History of D C History of History of hernia repair Hx of knee surgery History of tonsillectomy Family History Father Lung cancer Mother Parkinson disease Sister Thyroid disorder Other Anxiety Depression Family history of skin cancer History of blood clots History of blood transfusion Hypertension Social History Smoking Status: Never smoker alcohol intake: never substance use type: does not use what type of physical activity do you participate in: walking frequency: 1-2 times per week additional social history: Does Take Aspirin Does Take Ibuprofen As Needed Questionnaire PQH-9 BMS Over the last 2 weeks, how often have you been bothered by any of the following problems? 1. Little interest or pleasure in doing things: not at all 2. Feeling down, depressed, or hopeless: several days 3. Trouble falling or staying asleep, or sleeping too much: several days 4. Feeling tired or having little energy: more than half the days 5. Poor appetite or overeating: not at all 6. Feeling bad about yourself - or that you are a failure or have let yourself and your family down: nearly every day 7. Trouble concentrating on things, such as reading the newspaper or watching television: several days 8. Moving or speaking so slowly that other people could have noticed? - Or the opposite - being so fidgety or restless that you have been moving around a lot more than usual: not at all 9. Thoughts that you would be better off or of hurting yourself in some way: not at all Total score: 8 If you checked off any problems, how difficult have these problems made it for you to do your work, take care of things at home, or get along with other people?: not difficult at all Source: Developed by Drs. Bigg Toussaint, Maricruz Johnson, Renato Sweet and colleagues, with an educational braulio from [employer]. INDIGO-7 BMS INDIGO-7 Feeling nervous, anxious, or on edge: 1 = Several days Not being able to stop or control worryin = Several days Worrying too much about different things: 2 = More than half the days Trouble relaxin = Several days Being so restless that it is hard to sit still: 0 = Not at all Becoming easily annoyed or irritable: 2 = More than half the days Feeling afraid as if something awful might happen: 3 = Nearly every day Total INDIGO-7 score (0-4 normal; 5-9 mild; 10-14 moderate; 15-21 severe): 10 Source: Developed by Drs. Bigg Toussaint, Maricruz Johnson, Renato Sweet and colleagues, with an educational braulio from [employer]. HPI HPI Chief Complaint: 6 M FU Details: MOLLY MCCOY, is a 59 F who presents to the office today for refill of her medications. She is doing very well as her so (more content not included)... Normal [facility] Basic Metabolic Profile (BMP )on 01-10-2024 BUN/CRE 22.4 RATIO High 10-20 [facility] Comment on above: Performed By: #### L [id number], L506.0400, L500.2500 #### [facility] [address] [place], [address] CA,Total 9.7 mg/dL Normal 8.5-10.1 [facility] Comment on above: Performed By: #### L [id number], [id number], [id number] #### [facility] [address] [place], [address] Chloride [Moles/Vol] 104 mmol/L Normal 98-107 [facility] Comment on above: Performed By: #### [id number], [id number], [id number] #### [facility] [address] [place], [address] CO2 [Moles/Vol] 26.0 mmol/L Normal 21.0-32.0 [facility] Comment on above: Performed By: #### L [id number], [id number], [id number] #### [facility] [address] [place], [address] Creatinine [Mass/Vol] 0.89 mg/dL Normal 0.55-1.02 [facility] Comment on above: Result Comment: The validity of the calculated GFR GFRAA in patients over 70 years has not been determined. Clinical correlation is essential. Performed By: #### L [id number], [id number], L500.2500 #### [facility] [address] [place], [address] EST GFR - AA 83 mL/min Normal >60 [facility] Comment on above: Result Comment: Afri can [place] GFR Calc Performed By: #### L [id number], [id number], L500.2500 #### [facility] [address] [place], [address] GAP 7 Normal 5-15 [facility] Comment on above: Performed By: #### L [id number], [id number], L500.2500 #### [facility] [address] [place], [address] GFR/1.73 sq M.predicted among non-blacks MDRD (S/P/Bld) [Vol rate/Area] 69 mL/min/{1.73_m2} Normal >60 [facility] Comment on above: Result Comment: Non- GFR Calc Performed By: #### L [id number], L506.0400, L500.2500 #### [facility] [address] [place], [address] Glucose [Mass/Vol] 97 mg/dL Normal 74-106 [facility] Comment on above: Performed By: #### L [id number], [id number], [id number] #### [facility] [address] [place], [address] Potassium [Moles/Vol] 4.6 mmol/L Normal 3.5-5.1 [facility] Comment on above: Performed By: #### L [id number], [id number], L500.2500 #### [facility] [address] [place], [address] Sodium [Moles/Vol] 137 mmol/L Normal 136-145 [facility] Comment on above: Performed By: #### L [id number], [id number], L500.2500 #### [facility] [address] [place], [address] Urea nitrogen [Mass/Vol] 20 mg/dL High 7-18 [facility] Comment on above: Performed By: #### L [id number], [id number], [id number] #### [facility] [address] [place], [address] Internal Medicine Office Vis itodigna 01-10-2024 Internal Medicine Office Visit [facility] [address] [place] [address] [place] [address] OFFICE VISIT Date of Service: 01/10/24 MR#: [id number] Acct: [id number] Name: MOLLY MCCOY Rep #: [id number] : 1965 Provider: Dr. Jessica vasquez, DO Age/Sex: 58/F Location: [facility] Status: Signed Intake Vital Signs 07/12/23 09:59 01/10/24 09:46 Height 5 ft 5 in 5 ft 5 in Weight: 132 lb 6 oz 133 lb BMI 22.0 22.1 BP 160/60 H 140/90 H Blood Pressure Location Lt brachial Lt brachial Position Sitting Sitting Respiration 20 H 16 Pulse 112 H 100 Pulse Source Monitor Monitor Temp 97.0 F L 98.6 F Temp Source Temporal Temporal Pulse Oximetry (%) 99 97 Oxygen Delivery Method room air room air Intake Visit Reasons: 6 M FU Chief Complaint: 6 M FU Camera Supervisor Required: No Accompanied by: Self Is patient in pain?: No Allergies venlafaxine (From Effexor) Allergy (Unknown, Verified 01/10/24 09:44) Heart Racing Medications ???Medication ???Instructions ???Recorded ???Confirmed ???Type levothyroxine 100 mcg capsule 100 mcg PO QDAY #90 caps 07/12/23 01/10/24 Rx lorazepam 0.5 mg tablet 0.5 mg PO DAILY PRN anxiety #30 01/10/24 01/10/24 Rx tabs PFSH Medical History Neoplasm of unspecified behavior of digestive system Anxiety and depression Anemia Allergies Back pain Thyroid disease Knee pain HTN (hypertension) H/O emotional problems Blood transfusion without reported diagnosis History of blood clots Hypothyroid Surgical History History of D C History of History of hernia repair Hx of knee surgery History of tonsillectomy Family History Father Lung cancer Mother Parkinson disease Sister Thyroid disorder Other Anxiety Depression Family history of skin cancer History of blood clots History of blood transfusion Hypertension Social History Smoking Status: Never smoker alcohol intake: never substance use type: does not use what type of physical activity do you participate in: walking frequency: 1-2 times per week additional social history: Does Take Aspirin Does Take Ibuprofen As Needed HPI HPI Chief Complaint: 6 M FU Details: MOLLY MCCOY, is a 58 F who presents to the office today for a routine follow-up appointment. She has had some problems staying asleep at night wakes up worrying about things. She continues to have a lot of family stress but does help take care of her 4-1/2-month old grandson and enjoys that quite a bit. ROS Const Constitutional: No body ache, chills, excessive sweating, fatigue, fever(s), frequent falls, headache(s), snoring, weakness or change in appetite Eyes Eyes: No blurry vision, change in vision, eye pain or Light sensitivity ENT ENT: No abnormal hearing, ear or mastoid pain, tinnitus, nasal congestion, headache(s), neck pain or sore throat Resp Respiratory: No cough, shortness of breath, snoring or wheezing Cardio Cardiology: No chest pain at rest, chest pain with exertion, excessive sweating, dyspnea on exertion, lightheadedness, orthopnea or palpitations Gastro GI: No abdominal pain, change in bowel habits, constipation, cramping, diarrhea, nausea/dyspepsia or vomiting Genitourinary-Female : No burning urination, painful urination, urinary incontinence or urinary frequency Musc Musculoskeletal: No abnormal gait, joint pain, back pain, limited range of motion, muscle weakness, neck pain or numbness Skin Skin: No dry skin, redness, lesions, itchy eyes, rash or wounds Neuro Neurology: No abnormal gait, abnormal hearing, weakness, frequent falls, headache(s), memory loss or numbness Psych Psychiatric: No anxiety, No change in appetite, No depression, No memory loss and No Thoughts of harming yourself/Others Endo Endocrine: No cold intolerance, excessive sweating, fatigue, flushing, heat intolerance, increased thirst/drinking or increased hunger Aller/Imm Allergy/Immunologic: No itchy eyes, seasonal allergy symptoms, hives or wheezing Alexi/Lymp Hematologic/Lymphati c: No easy bleeding or easy bruising Exam Const General: cooperative, healthy appearing and no acute distress Eyes General: appearance normal, both eyes and all related structures Neck Neck: normal visual inspection and no lymphadenopathy Neck mass: No Thyroid: thyroid normal Resp Effort Inspection: normal respiratory effort and symmetric chest movement Auscultation: Bilateral: Clear to Auscultation Cardio Rate: tachycardic Rhythm: regular rhythm Musc Musculoskeletal: No joint tenderness Skin General: no rashes or lesions noted Extrem General: normal to (more content not included)... Normal [facility] T4 Free Directon 01-10-2024 T4 FREE DIRECT 1.19 ng/dL Normal 0.76-1.46 [facility] Comment on above: Performed By: #### L [id number], L506.0400, L500.2500 #### [facility] [place], [address] Thyroid Stim Hormone (TSH)on 01-10-2024 TSH 0.402 uIU/mL Normal 0.358-3.740 [facility] Comment on above: Performed By: #### L [id number], L506.0400, L500.2500 #### [facility] [address] [place], [address] Basophil percentageOrdered B y: Jessica Gomez on 01-05-2023 Chloride [Moles/Vol] 105 mmol/L 98-107 [facility] Glucose [Mass/Vol] 97 mg/dL 74-106 [facility] Potassium [Moles/Vol] 4.2 mmol/L 3.5-5.1 [facility] Sodium [Moles/Vol] 141 mmol/L 136-145 [facility] Laboratory - Chemistry and C hemistry - challengeOrdered By: Jessica Gomez on 01-05-2023 CO2 [Moles/Vol] 29.0 mmol/L 21.0-32.0 [facility] Urea nitrogen/Creatinine [Mass ratio] 20.8 mg/mg 10-20 [facility] No Panel InformationOrdered By: Jessicabrandy Gomez on 01-05-2023 Estimated GFR (MDRD) Amer 76 mL/min >60 [facility] Comment on above: GFR Calc Estimated GFR (MDRD) Non-Af Amer 63 mL/min >60 [facility] Comment on above: Non- GFR Calc Thyroid Stimulating Hormone (TSH) 6.89 uIU/mL 0.358-3.74 [facility] Serum or plasma calcium elida urement (mass/volume)Ordered By: Jessica Gomez on 01-05-2023 Calcium [Mass/Vol] 8.7 mg/dL 8.5-10.1 [facility] Serum or plasma creatinine m easurement (mass/volume)Ordered By: Jessica Gomez on 01-05-2023 Creatinine [Mass/Vol] 0.96 mg/dL 0.55-1.02 [facility] Comment on above: The validity of the calculated GFR & GFRAA in patients over 70 years has not been determined. Clinical correlation is essential. Serum or plasma urea nitroge n measurement (mass/volume)Ordered By: Jessica Gomez on 01-05-2023 Urea nitrogen [Mass/Vol] 20 mg/dL 7-18 [facility] Thin prep Papanicolaou smear with manual screeningOrdered By: Jessica Gomez on 01-05-2023 Thin prep Papanicolaou smear with manual screening 7 5-15 [facility] Basophil percentageon 2021 Chloride [Moles/Vol] 106 mmol/L 98-107 [facility] Work Phone: Glucose [Mass/Vol] 91 mg/dL 74-106 [facility] Work Phone: Potassium [Moles/Vol] 4.5 mmol/L 3.5-5.1 [facility] Work Phone: Sodium [Moles/Vol] 140 mmol/L 136-145 [facility] Work Phone: WBC (Bld) [#/Vol] 5.2 10*3/uL 4.4-11.0 [facility] Work Phone: Blood erythrocytes count (nu mber/volume)on 11-10-2021 RBC (Bld) [#/Vol] 4.67 10*6/uL 4.2-5.4 [facility] Work Phone: Blood hemoglobin measurement (mass/volume)on 11-10-2021 Hemoglobin (Bld) [Mass/Vol] 13.7 g/dL 12.0-15.0 [facility] Work Phone: Blood platelet mean volumeon 11-10-2021 Platelet mean volume (Bld) [Entitic vol] 9.5 fL 6.2-12.0 [facility] Work Phone: Cervical or vagninal specime n microscopic examination by cytology stain (reported ason 11-10-2021 Cytology report Cyto stain Doc (Cvx/Vag) Comment . [facility] Work Phone: Comment on above: The Pap smear is a s creening test designed to aid in thedetection of premalignant and malignant conditions of theuterine cervix. It is not a diagnostic procedure andshould not be used as the sole means of detecting cervicalcancer. Both false-positive and false-negative reports dooccur. Determination of erythrocyte mean corpuscular volume (MCV)on 11-10-2021 MCV (RBC) [Entitic vol] 90.4 fL 81-99 [facility] Work Phone: Hematocrit Auto (Bld) [Volum e fraction]on 11-10-2021 Hematocrit (Bld) [Volume fraction] 42.2 % 37-47 [facility] Work Phone: Laboratory - Chemistry and C hemistry - challengeon 11-10-2021 CO2 [Moles/Vol] 30.0 mmol/L 21.0-32.0 [facility] Work Phone: Urea nitrogen/Creatinine [Mass ratio] 17.9 mg/mg 11-26 [facility] Work Phone: Laboratory - Cytologyon Pharmacy Salesperson Cyto stain Nom (Cvx/Vag) [ID] Comment . [facility] Work Phone: Comment on above: Nereida Kwong, Tailman (ASCP) Laboratory - Hematology and Cell countson 11-10-2021 Erythrocyte distribution width (RBC) [Entitic vol] 42.5 fL 35.1-43.9 [facility] Work Phone: Erythrocyte distribution width (RBC) [Ratio] 12.9 % 11.6-14.6 [facility] Work Phone: MCH (RBC) [Entitic mass] 29.3 pg 27.0-32.0 [facility] Work Phone: Laboratory - Microbiology an d Antimicrobial susceptibilityon 11-10-2021 C. trachomatis DNA MAGALIE+probe Ql (Unsp spec) Negative Negative [facility] Work Phone: N. gonorrhoeae DNA MAGALIE+probe Ql (Unsp spec) Negative Negative [facility] Work Phone: Comment on above: Performed at: WB - [address] [id number] Director: Nay Radford MD, Phone: [phone] at: =G - [facility] [address] [id number] Director: Nay Radford MD, Phone: [phone] Laboratory - Miscellaneous t estson 11-10-2021 Service comment (Unsp spec) [Interp] Comment . [facility] Work Phone: Comment on above: This liquid based Th inPrep(R) pap test was screened withthe use of an image guided system. Service comment (Unsp spec) [Interp] . . [facility] Work Phone: MCHC Auto (RBC) [Mass/Vol]on 11-10-2021 MCHC (RBC) [Mass/Vol] 32.5 g/dL 32-36 [facility] Work Phone: No Panel Informationon 11-10 Estimated GFR (MDRD) Amer 83 mL/min >60 [facility] Work Phone: Comment on above: GFR Calc Estimated GFR (MDRD) Non-Af Amer 69 mL/min >60 [facility] Work Phone: Comment on above: Non- GFR Calc Thyroid Stimulating Hormone (TSH) 1.68 uIU/mL 0.358-3.74 [facility] Work Phone: Human Papillomavirus Screen Comment . [facility] Work Phone: Comment on above: The HPV DNA reflex c raulito were not met with this specimenresult therefore, no HPV testing was performed. Pathology report final diagnosis Narrative Comment . [facility] Work Phone: Comment on above: NEGATIVE FOR INTRAEP ITHELIAL LESION OR MALIGNANCY. Platelets bldon 11-10-2021 Platelets (Bld) [#/Vol] 315 10*3/uL 150-450 [facility] Work Phone: Serum or plasma calcium elida urement (mass/volume)on 11-10-2021 Calcium [Mass/Vol] 9.6 mg/dL 8.5-10.1 [facility] Work Phone: Serum or plasma creatinine m easurement (mass/volume)on 11-10-2021 Creatinine [Mass/Vol] 0.90 mg/dL 0.55-1.02 [facility] Work Phone: Comment on above: The validity of the calculated GFR & GFRAA in patients over 70 years has not been determined. Clinical correlation is essential. Serum or plasma urea nitroge n measurement (mass/volume)on 11-10-2021 Urea nitrogen [Mass/Vol] 16 mg/dL 7-18 [facility] Work Phone: Thin prep Papanicolaou smear with manual screeningon 11-10-2021 Thin prep Papanicolaou smear with manual screening 4 -15 [facility] Work Phone: COVID-19, MOLECULARon 2019 INTERNAL CONTROL (ABBOT ID) Pass Normal [facility] SARS-COV-2 ([place]AL[place] ID) Detected Abnormal Not Detected [facility] COVID-19, Molecularon 2019 Internal Control Pass [facility] Interpretation and review of laboratory results Abnormal [facility] SARS-CoV-[address] [facility] Vital Signs Date Time Vital Sign Value Performing Clinician Facility 07-17-2024 10:09-0400 Body height 165.[address] Jessica Gomez DO Work Phone: [facility] 07-17-2024 10:09-0400 Body mass index (BMI) [Ratio] 21.6 kg/m2 Dr. Jessica Gomez DO Work Phone: [facility] 07-17-2024 10:09-0400 Body temperature 98.6 [degF] Dr. Jessica Gomez DO Work Phone: [facility] 07-17-2024 10:09-0400 Body weight 58.[address] Jessica Gomez DO Work Phone: [facility] 07-17-2024 10:09-0400 Diastolic blood pressure 82 mm[Hg] Dr. Jessica Gomez DO Work Phone: [facility] 07-17-2024 10:09-0400 Heart rate 106 /min Dr. Jessica Gomez DO Work Phone: [facility] 07-17-2024 10:09-0400 Respiratory rate 18 /min Dr. Jessica Gomez DO Work Phone: [facility] 07-17-2024 10:09-0400 SaO2% (BldA) [Mass fraction] 98 % Dr. Jessica Gomez DO Work Phone: [facility] 07-17-2024 10:09-0400 Systolic blood pressure 150 mm[Hg] Dr. Jessica Gomez DO Work Phone: [facility] 01-05-2023 09:56-0500 Body height 165.[address] Jessica Gomez Work Phone: [facility] 01-05-2023 09:56-0500 Body mass index (BMI) [Ratio] 22.3 kg/m2 Dr. Jessica Gomez Work Phone: [facility] 01-05-2023 09:56-0500 Body temperature 98.5 [degF] Dr. Jessica Gomez Work Phone: [facility] 01-05-2023 09:56-0500 Body weight 60.[address] Jessica Gomez Work Phone: [facility] 01-05-2023 09:56-0500 Diastolic blood pressure 74 mm[Hg] Dr. Jessica Gomez Work Phone: [facility] 01-05-2023 09:56-0500 Heart rate 98 /min Dr. Jessica Gomez Work Phone: [facility] 01-05-2023 09:56-0500 Respiratory rate 16 /min Dr. Jessica Gomez Work Phone: [facility] 01-05-2023 09:56-0500 SaO2% (BldA) [Mass fraction] 98 % Dr. Jessica Gomez Work Phone: [facility] 01-05-2023 09:56-0500 Systolic blood pressure 140 mm[Hg] Dr. Jessica Gomez Work Phone: [facility] 06-30-2022 11:01-0400 Body height 165.[address] Jessica Gomez Work Phone: [facility] 06-30-2022 11:01-0400 Body mass index (BMI) [Ratio] 21.6 kg/m2 Dr. Jessica Gomez Work Phone: [facility] 06-30-2022 11:01-0400 Body temperature 98.8 [degF] Dr. Jessica Gomez Work Phone: [facility] 06-30-2022 11:01-0400 Body weight 58.[address] Jessica Gomez Work Phone: [facility] 06-30-2022 11:01-0400 Diastolic blood pressure 90 mm[Hg] Dr. Jessica Gomez Work Phone: [facility] 06-30-2022 11:01-0400 Heart rate 117 /min Dr. Jessica Gomez Work Phone: [facility] 06-30-2022 11:01-0400 Respiratory rate 16 /min Dr. Jessica Gomez Work Phone: [facility] 06-30-2022 11:01-0400 SaO2% (BldA) [Mass fraction] 99 % Dr. Jessica Gomez Work Phone: [facility] 06-30-2022 11:01-0400 Systolic blood pressure 170 mm[Hg] Dr. Jessica Gomez Work Phone: [facility] 11-10-2021 09:26-0400 Body temperature 97.3 [degF] Dr. Jessica Gomez Work Phone: [facility] Work Phone: 11-10-2021 09:26-0400 Body weight 59.[address] Jessica Gomez Work Phone: [facility] Work Phone: 11-10-2021 09:26-0400 Diastolic blood pressure 80 mm[Hg] Dr. Jessica Gomez Work Phone: [facility] Work Phone: 11-10-2021 09:26-0400 Heart rate 125 /min Dr. Jessica Gomez Work Phone: [facility] Work Phone: 11-10-2021 09:26-0400 Respiratory rate 18 /min Dr. Jessica Gomez Work Phone: [facility] Work Phone: 11-10-2021 09:26-0400 SaO2% (BldA) [Mass fraction] 97 % Dr. Jessica Gomez Work Phone: [facility] Work Phone: 11-10-2021 09:26-0400 Systolic blood pressure 142 mm[Hg] Dr. Jessica Gomez Work Phone: [facility] Work Phone: 08-22-2021 10:43-0400 Body height 165.[address] Jessica Gomez Work Phone: [facility] Work Phone: 08-22-2021 10:43-0400 Body mass index (BMI) [Ratio] 21.6 kg/m2 Dr. Jessica Gomez Work Phone: [facility] Work Phone: 08-22-2021 10:43-0400 Body temperature 98.3 [degF] Dr. Jessica Gomez Work Phone: [facility] Work Phone: 08-22-2021 10:43-0400 Body weight 58.[address] Jessica Gomez Work Phone: [facility] Work Phone: 08-22-2021 10:43-0400 Diastolic blood pressure 91 mm[Hg] Dr. Jessica Gomez Work Phone: [facility] Work Phone: 08-22-2021 10:43-0400 Heart rate 101 /min Dr. Jessica Gomez Work Phone: [facility] Work Phone: 08-22-2021 10:43-0400 Respiratory rate 16 /min Dr. Jessica Gomez Work Phone: [facility] Work Phone: 08-22-2021 10:43-0400 SaO2% (BldA) [Mass fraction] 99 % Dr. Jessica Gomez Work Phone: [facility] Work Phone: 08-22-2021 10:43-0400 Systolic blood pressure 179 mm[Hg] Dr. Jessica Gomez Work Phone: [facility] Work Phone: 05-13-2021 10:08-0400 Body mass index (BMI) [Ratio] 21.4 kg/m2 Dr. Jessica Gomez Work Phone: [facility] Work Phone: 05-13-2021 10:08-0400 Body temperature 98.7 [degF] Dr. Jessica Gomez Work Phone: [facility] Work Phone: 05-13-2021 10:08-0400 Body weight 58.[address] Jessica Gomez Work Phone: [facility] Work Phone: 05-13-2021 10:08-0400 Diastolic blood pressure 84 mm[Hg] Dr. Jessica Gomez Work Phone: [facility] Work Phone: 05-13-2021 10:08-0400 Heart rate 127 /min Dr. Jessica Gomez Work Phone: [facility] Work Phone: 05-13-2021 10:08-0400 Respiratory rate 14 /min Dr. Jessica Gomez Work Phone: [facility] Work Phone: 05-13-2021 10:08-0400 SaO2% (BldA) [Mass fraction] 99 % Dr. Jessica Gomez Work Phone: [facility] Work Phone: 05-13-2021 10:08-0400 Systolic blood pressure 166 mm[Hg] Dr. Jessica Gomez Work Phone: [facility] Work Phone: 01-22-2020 14:42-0500 BP Diastolic 78 mm[Hg] [facility] Comment on above: recheck [facility] 01-22-2020 14:42-0500 BP Systolic 155 mm[Hg] [facility] Comment on above: recheck [facility] 01-22-2020 14:33-0500 BMI (Body Mass Index) 22.14 kg/m2 [facility] 01-22-2020 14:33-0500 Body Temperature 97.9 [degF] [facility] 01-22-2020 14:33-0500 Body weight 58.51 kg [facility] 01-22-2020 14:33-0500 Height 162.6 cm [facility] 01-22-2020 14:33-0500 Pulse (Heart Rate) 95 /min [facility] 01-22-2020 14:33-0500 Pulse Oximetry 98 % [facility] 01-22-2020 14:33-0500 Respiratory Rate 16 /min [facility] Encounters Encounter Date Encounter Type Care Provider Facility Start: 07-17-2024 End: 07-17-[address] Jessica Galvan DO -[facility] Work Phone: Start: 07-17-2024 End: 07-17-[address] Jessica Gomez DO Work Phone: [facility] Work Phone: Start: 01-10-2024 End: 01-10-2024 ambulatory Jessica Gomez Facility:[facility] Start: 01-10-2024 End: 01-10-2024 ambulatory Jessica Gomez Facility:[facility] Start: 01-05-2023 End: 01-05-[address] Jessica Gomez Work Phone: [facility] Work Phone: Start: 01-05-2023 End: 01-05-[address] Jessica Gomez Work Phone: [facility] Work Phone: Start: 07-02-2022 End: 07-02-[address] Jessica Gomez Work Phone: [facility] Work Phone: Start: 07-02-2022 End: 07-02-[address] Jessica Gomez Work Phone: [facility]-Outpatient Breast Imaging Work Phone: Start: 06-30-2022 End: 06-30-[address] Jessica Gomez Work Phone: [facility] Work Phone: Start: 11-10-2021 End: 11-10-[address] Jessica Gomez Work Phone: [facility] Work Phone: Start: 11-10-2021 End: 11-10-[address] Jessica Gomez Work Phone: [facility] Start: 09-15-2021 End: 09-15-[address] Jessica Gomez Work Phone: [facility]-Physical Therapy Start: 08-22-2021 End: 08-22-2021 Emergency department patient visit Dr. Jessica Gomez Work Phone: [facility]-Emergency Department Start: 05-26-2021 End: 05-26-[address] Jessica Gomez Work Phone: [facility]-Outpatient Breast Imaging Start: 05-13-2021 End: 05-13-[address] Jessica Gomez Work Phone: [facility] Start: 04-23-2020 End: 04-23-2020 Orders Only Zee William Work Phone: [facility] Start: 01-22-2020 End: 01-22-2020 Patient encounter procedure JAIME RAJPUT [facility] Start: 01-22-2020 End: 01-22-2020 Office outpatient new 20 minutes Jaime Hernandezbro Rajput Work Phone: [facility] [place] Comment on above: Nonintractable heada joseph, unspecified chronicity pattern, unspecified headache type (Primary Dx); Body aches; Nausea; Rhinorrhea; Elevated blood pressure reading Procedures Date Procedure Procedure Detail Performing Clinician Start: 07-02-2022 Screening mammography Roni Gomez Work Phone: Start: 08-22-2021 Plain X-ray of shoulder Dr. Jessica Gomez Work Phone: Start: 05-26-2021 Screening mammography Roni Gomez Work Phone: Start: 01-22-2020 COVID-19, MOLECULAR [place] Negar Rajput Work Phone: Plan of Treatment Date Care Activity Detail Author Start: 07-23-2024 ambulatory Ambulatory Facility:[facility] Start: 11-10-2021 Liquid based cervica l cytology screening [facility] Work Phone: Start: 01-23-2020 Influenza vaccinatio n given Sequential Influenza Vaccine (#1) [facility] Comment on above: Postponed from 10/08 (Patient Ill Today) Start: 10-09-2019 Influenza vaccinatio n given Sequential Influenza Vaccine (#1) [facility] Start: 2013 Administration of he rpes zoster vaccine Zoster Vaccines (1 of 2) [facility] Start: 2013 Screening for malign ant neoplasm of colon [facility] Start: 1981 Hepatitis C antibody , confirmatory test Hepatitis C Screening [facility] Start: 1979 COVID-19 Vaccine (1 of 2) COVID-19 Vaccine (1 of 2) [facility] Start: 1978 HIV screening HIV Screening [facility] Start: 1975 Adolescent depressio n screening assessment Depression Screening (PHQ9) [facility] Start: 1966 History and physical examination, annual for health maintenance Wellness Visit [facility] Start: 1963 Screening for malign ant neoplasm of cervix Pap Smear [facility] Start: 1963 Screening mammography [facility]ogram [facility] Start: 1963 Tetanus vaccination Tetanus: Every [address] [facility] Covid-19/Influenza O rder Algorithm Covid-19/Influenza Order Algorithm Microbiology Routine Nonintractable headache, unspecified chronicity pattern, unspecified headache type Body aches Nausea Rhinorrhea Ordered: 01/22/2020 [facility] Comment on above: Ordered: 01/22/2020 Path report.final Dx Spec [facility] Work Phone: Patient Education ED Tendonitis [facility] Work Phone: Patient referral [facility] Work Phone: Immunizations Immunization Date Immunization Notes Care Provider Fa jaxon 11-10-2021 tetanus toxoid, redu holli diphtheria toxoid, and acellular pertussis vaccine, adsorbed Dr. Jessica Gomez Work Phone: [facility] Payers Date Payer Category Payer Self-pay [id number] 2024 Unknown [id number] 2019 Unknown [id number] [facility] [employer] [id number] 2019-Present [id number] 1965 Unknown [id number] Unknown [id number] Unknown [id number] Unknown [id number] Unknown [id number] Social History Date Type Detail Facility Start: 01-22-2020 End: 01-10-2024 Tobacco smoking status NHIS Never smoker [facility] Start: 01-22-2020 Tobacco use and exposure Never used [facility] Start: 01-22-2020 Alcohol intake Ex-drinker (finding) [facility] Sex Assigned At Not on file [place] [facility] Exposure to SARS-CoV -2 (event) Not sure [facility] Start: 08-22-2021 End: 01-05-2023 Tobacco smoking status [facility] Unknown if ever smoked [facility] Start: 1965 Sex Assigned At Female [facility] Clinical Note 11-10-2021 Note Date & Type Note Facility 11-10-2021 Note [facility] Work Phone: Pap Smear Specimen Adequacy November 10, 2021 9:00am Comment . Satisfactory for evaluation. Endocervical and/or squamous metaplasticcells (endocervical component) are present. Comment on above: Satisfactory for crispin luation. Endocervical and/or squamous metaplasticcells (endocervical component) are present. Evaluation note Note Date & Type Note Facility Evaluation note Diagnosis Onset Date Anxiety and depression acute H/O emotional problems chron ic Hypothyroid [facility] Work Phone: Evaluation note Note Date & Type Note Facility Evaluation note Diagnosis Onset Date Anxiety and depression acute Encounter for annual routine gynecological examination acute Hypothyroid [facility] Work Phone: Evaluation note Note Date & Type Note Facility Evaluation note Diagnosis Onset Date Anxiety and depression acute [facility] Work Phone: Evaluation note Note Date & Type Note Facility Evaluation note Diagnosis Onset Date H/O emotional problems chron ic Hypothyroid [facility] Work Phone: Evaluation note Note Date & Type Note Facility Evaluation note Diagnosis Onset Date Resolution Anxiety and depression acute Ju ne 2024 9:48am H/O emotional problems chronic [place] 2024 9:48am Hypothyroid chronic July 17 9:48am [facility] Work Phone: Reason for referral (narrative) Note Date & Type Note Facility Reason for referral (narrative) No reason for referral information available [facility] Work Phone: Summary Purpose Family History No Family History Records Found Relationship Condition Age at Onset Recorded Date/T sharla Not Specified History of blood transfusion Unknown History of blood clots Unknown Anxiety Unknown Depression Unknown Family history of ma lignant neoplasm of skin Unknown Hypertension Unknown father Malignant neoplasm of lung Unknown mother Parkinson's disease Unknown sister Disorder of thyroid Unknown Advance Directives No Advanced Directives Records FoundDocuments on File Type Date Recorded Patient Paid Intern Expl anation Advance Directives and Living Will Advance Directive Response Recorded Date/ Time Living Will No August 22, 2021 10:55am Power of Multimedia Manager No August 22 2 10:55am Advance Directive Response Recorded Date/ Time Living Will No August 22, 2021 9:55am Power of Multimedia Manager No August 22 9:55am Instructions * Patient Instructions* Jaime Rajput, PIANO PROFESSOR - 01/22/2020 2:38 PM EST Thank you for choosing [facility] for your healthcare needs today. COVID test pending. Will call only with positive result if your my chart is activitated. Otherwise will call you with results (either positive or negative). IF YOU ARE EXPERIENCING A HEADACHE AND THE HEADACHE IS THE WORST HEADACHE THAT YOU HAVE EVER EXPERIENCED OR A 'THUNDERCLAP' HEADACHE (MEANS INSTANT SEVERE ONSET) GO DIRECTLY TO THE ER. Can get at the pharmacy or store acetaminophen (tylenol) and or ibuprofen (motrin), for fever and or pain relief, if you have no contraindications for taking either medication. Follow medication labeling instructions for appropriate dosing. Any significant shortness of breath, difficulty breathing, high fevers, confusion go to the emergency room for further evaluation. Follow-up with your primary provider (or return to clinic if your do not have a primary care provider) if not better in 5 to 7 days or earlier if condition worsens. [facility] COVID-19 Post-swabbing Instructions We will do our best to update you as soon as we receive your test results, but if we had to send your test to be run at the lab, you may see the results on MyChart or receive a call from [facility] before we are able to contact you. You should receive a call from our COVID-19 results provider as soon as possible. If you test POSITIVE for COVID-19: Isolate until: - it has been 10 days since you developed symptoms AND - you have been without a fever (100.4 F) for at least 24 hours without the use of fever reducing medication AND - your symptoms are improving Isolation is when you test positive for COVID-19 and is meant to keep the infected person away fromall others, even in their own home. If you live with others, stay in a specific sick room or area and away from other people or animals, including pets. Use a separate bathroom, if available. Seek emergency medical care immediately if you develop worsening warning signs including: - trouble breathing - persistent pain or pressure in the chest - new confusion - inability to wake or stay awake - bluish lips or face It is not recommended by the CDC to have another COVID-19 test done in order to discontinue isolation or return to work/school. We can provide return to work and school documentation as needed. Once returning to work/school, you should still practice infection prevention: - cover your nose and mouth, if possible with a face covering (face mask) - cover coughs and sneezes - maintain 6 foot social distance from other people - clean hands often with soap and water for 20 seconds and/or alcohol based hand vacuum tank tender - avoid touching eyes, nose, and mouth - avoid sharing items as they can spread infection If I test positive, what about those with which I have had close contact (household members, partners, close friends, etc)? Anyone with close contact (as defined above) within 48 hours prior to when the COVID-19 positive person developed symptoms should self-quarantine. This includes during the 10 day quarantine period. So, if your family is unable to isolate from you - they must wait your 10 days, plus additional quarantine as described below. If they develop symptoms - they should quarantine for the entire 14 days from their exposure to you. A negative test, while having symptoms, does not change this recommendation. If they do not develop symptoms and are no longer exposed to you: Without testing, quarantine can end after 10 days from the last exposure to a known positive COVID person. If they test negative, and their test was done at least 5 days from their last known COVID exposure, their quarantine can end after 7 days. They must continue to monitor symptoms daily for all 14 days. However, if at any time during those 14 days they develop symptoms you must self-isolate and follow up for further evaluation. If you test NEGATIVE for COVID-19: Symptomatic for COVID-19 If you have COVID-19 symptoms (symptomatic) and you are under a 14 day quarantine because of significant exposure (which is defined as close contact with someone that has a laboratory confirmed infection from COVID-19 or a person that was diagnosed by a medical professional), then a negative COVID-19 test does not clear you from the 14 day quarantine. You were likely not clinically infectious at the time of the test. This does not mean that you will not get sick and develop symptoms. It is possible that you were in the early phase of the infection at the time of your test and you could be positive later. For these reasons: 1) If the test was due to having symptoms WITH significant exposure, you should remain in quarantine: - for the full 14 days AND - you have been without a fever (100.4 F) for at least 24 hours without the use of fever reducing medication AND - your symptoms are improving If you are unable to separate yourself completely from the COVID-19 positive person (i.e. parent caring for a child), CDC guidelines recommend you quarantine for 24 days (10 days from symptom onset of the COVID positive person PLUS 14 additional days). 2) If the test was due to symptoms WITHOUT significant exposure, you may return to work/school if: - you have been without a fever (100.4 F) for at least 24 hours without the use of fever reducing medication AND - your symptoms are improving Asymptomatic for COVID-19 If you do not have any COVID-19 symptoms (asymptomatic): 1) you and your provider may have decided together not to do asymptomatic COVID- 19 testing at this time (or your test is still pending). Your quarantine may end after 10 days if: - you remain without symptoms (without symptoms reducing medications) for the full 10 days since your last exposure to a known COVID-19 positive person - you continue to monitor symptoms for the full 14 days after exposure. If symptoms develop at any time during these 14 days, please self-isolate and contact your health care provider for further instructions as you may need further testing. 2) you and your provider may have decided together to do asymptomatic COVID-19 testing at this time. Your quarantine may end after 7 days if: - your COVID-19 test is done after day 5 (post exposure) - your COVID-19 test is negative (not detected) - you remain without symptoms (without symptom reducing medications) during your quarantine - you continue to monitor symptoms for the full 14 days after exposure. If symptoms develop at any time during these 14 days, please self-isolate and contact your health care provider for further instructions as you may need further testing. When Do I Self-Quarantine? You should quarantine if you have had a significant exposure which is defined as having been in close contact (as defined below) with someone that has a laboratory confirmed infection from COVID-19 or that person was diagnosed by a medical professional. This includes contact within 48 hours prior to when the COVID-19 positive person developed symptoms. - Quarantine is used to keep someone who might have been exposed to COVID-19 away from others. - Quarantine helps prevent spread of disease that can occur before a person knows they are sick or if they are infected with the virus without feeling symptoms. - People in quarantine should stay home, separate themselves from others, monitor their health, andfollow directions from their state or local health department. What counts as close contact? - You were within 6 feet of someone who has COVID-19 for at least 15 minutes - You provided care at home to someone who is sick with COVID-19 - You had direct physical contact with the person (touched, hugged, or kissed them) - You shared eating or drinking utensils - They sneezed, coughed, or somehow got respiratory droplets on you When and How Will I Get Results? Tests performed in the clinic will be available within 15-20 minutes from initiation of test. If your test was sent out to the lab for testing, it could take anywhere from 1-5 days after your specimen is collected. The provider/practice who placed the order for your test will notify you of your results. - If you have an active [employer] account, and your COVID-19 test is negative (not detected), then you will be notified through your [employer] account. You should call the urgent care if you have any further questions. - If your COVID-19 test is positive (detected), you will receive a phone call to discuss your results and answer any questions you might have at that time. Please make sure [facility] has your updated phone number so we can contact you. [facility] will notify the [facility] of any positive results to comply with state regulations. What Happens After I Get Tested if I Develop Worsening COVID-19 Symptoms? All patients should self-quarantine at home until they receive their test results. While self-quarantining, contact your PCP or return to the urgent care if you develop any of the following: - A fever of 103 degrees F (39.4 C) or higher - A fever that lasts more than 3 days without medication - A fever that returns after being gone for more than 24 hours - Chest pain or difficulty breathing - A worsening of current symptoms For work concerns, please contact your employer's HR department. How Do I Self-Quarantine? - Stay home until 14 days after last exposure and maintain social distance (at least 6 feet) from others at all times - Avoid contact with people at higher risk for severe illness from COVID-19 - Self-monitor for symptoms: - Check temperature twice a day - Watch for fever (100.4F or higher), cough, shortness of breath, or other CDC recognized symptoms of COVID-19 If I test positive, what about those with which I have had close contact (household members, partners, close friends, etc)? Anyone with close contact (as defined above) within 48 hours prior to when the COVID-19 positive person developed symptoms should self-quarantine. This includes during the 10 day quarantine period. So, if your family is unable to isolate from you - they must wait your 10 days, plus additional quarantine as described below. If they develop symptoms - they should quarantine for the entire 14 days from their exposure to you. A negative test, while having symptoms, does not change this recommendation. If they do not develop symptoms and are no longer exposed to you: Without testing, quarantine can end after 10 days from the last exposure to a known positive COVID person. If they test negative, and their test was done at least 5 days from their last known COVID exposure, their quarantine can end after 7 days. They must continue to monitor symptoms daily for all 14 days. However, if at any time during those 14 days they develop symptoms you must self-isolate and follow up for further evaluation. What Do I Do If I am Sick? Stay Home: If you are sick, stay home from work, school, public places, and social gatherings Social Distance: maintain 6 feet of distance from other people. Monitor Your Symptoms: If you develop fever, shortness of breath, confusion, or any respiratory symptoms, please notify your doctor immediately Cover Your Cough: Cough and sneeze into your shirt sleeve or inner elbow. Do not cough into your hands or into the air. If available, cough into a tissue and throw it into a trash can. Wash Your Hands: Wash hands often with soap and warm water and/or alcohol based hand vacuum tank tender, scrubbing your hands for at least 20 seconds. Wash your hands after sneezing or coughing, after going to the bathroom, and before eating or drinking. Wear a Mask: Wear a face mask when around others. Always wear a face mask (if able) if you have to leave your home Don't Touch: avoid touching your eyes, nose, and mouth Don't Share: avoid sharing items with others as they can spread infection Call First: If you do need to seek urgent medical care, call the facility first to let them know you are on your way Other COVID Questions? CDC - https://www.cdc.gov/coronavirus/2019-ncov/index.html - https://www.cdc.gov/coronavirus/2019-ncov/ue-gxa-tjc-sick/quarantine.html [place] Department of Health - Website: https://coronavirus.[place].gov/wps/portal/gov/covid-19/home - Hotline: 347-4-BWV-OD (596-214-1769) [facility]: https://blog.Cloud[employer]/series/zpqmz-88-rrboehybcxa-toolkit/ Viral Infections: Care Instructions Your Care Instructions You don't feel well, but it's not clear what's causing it. You may have a viral infection. Viruses cause many illnesses, such as the common cold, influenza, fever, rashes, and the diarrhea, nausea, and vomiting that are often called stomach flu. You may wonder if antibiotic medicines could make you feel better. But antibiotics only treat infections caused by bacteria. They don't work on viruses. The good news is that viral infections usually aren't serious. Most will go away in a few days without medical treatment. In the meantime, there are a few things you can do to make yourself more comfortable. Follow-up care is a read part of your treatment and safety. Be sure to make and go to all appointments, and call your doctor if you are having problems. It's also a good idea to know your test resultsand keep a list of the medicines you take. How can you care for yourself at home? Get plenty of rest if you feel tired. Take an exct-yyv-zueidib pain medicine if needed, such as acetaminophen (Tylenol), ibuprofen (Advil, Motrin), or naproxen (Aleve). Read and follow all instructions on the label. Be careful when taking dwlt-jkl-jkyacqu cold or flu medicines and Tylenol at the same time. Many ofthese medicines have acetaminophen, which is Tylenol. Read the labels to make sure that you are nottaking more than the recommended dose. Too much acetaminophen (Tylenol) can be harmful. Drink plenty of fluids, enough so that your urine is light yellow or clear like water. If you have kidney, heart, or liver disease and have to limit fluids, talk with your doctor before you increase the amount of fluids you drink. Stay home from work, school, and other public places while you have a fever. When should you call for help? Call 911 anytime you think you may need emergency care. For example, call if: You have severe trouble breathing. You passed out (lost consciousness). Call your doctor now or seek immediate medical care if: You seem to be getting much sicker. You have a new or higher fever. You have blood in your stools. You have new belly pain, or your pain gets worse. You have a new rash. Watch closely for changes in your health, and be sure to contact your doctor if: You start to get better and then get worse. You do not get better as expected. Where can you learn more? Log into your personal health record on https://cloudControlt.[employer]mark and enter L906 in the Education box to learn more about Viral Infections: Care Instructions. Current as of: October 31, 2019 Content Version: 12.7 [employer]. Care instructions adapted under license by your healthcare professional. If you have questions about a medical condition or this instruction, always ask your healthcare professional. [employer] disclaims any warranty or liability for your use of this information. documented in this encounter History of Present Illness * Jaime Rajput CNP - 01/22/2020 2:36 PM EST Patient Name: [facility] Location: [place] Mcc[place] [address] [place] [id number] Date Of : Date Of Visit: 1965 01/22/2020 MRN# Provider: [id number] Jaime Rajput CNP Chief Complaint Patient presents with Covid-19 Screening pt reports bodyaches, headache, upset stomach and runny nose x . Denies previous covid testing Assessment & Plan 1. Nonintractable headache, unspecified chronicity pattern, unspecified headache type Covid-19/Influenza Order Algorithm 2. Body aches Covid-19/Influenza Order Algorithm 3. Nausea Covid-19/Influenza Order Algorithm 4. Rhinorrhea Covid-19/Influenza Order Algorithm 5. Elevated blood pressure reading No follow-ups on file. Medical Decision Making Client is non-toxic in NAD. COVID pending. Instructed follow up PCP elevated blood pressure readingtoday. Additional Clinical Comments [facility] COVID-19 test results POSITIVE phone call. Patient Molly Mccoy, 1965, was verified and notified of their positive test result. If this patient is a minor, a parent or legal guardian was called and notified. They have been recommended to follow up with their PCP for further management. If they do not have a PCP, we will attempt to connect them with a temporary [facility] PCP for further management for the course of this illness. [facility] recommendation follows the CDC's recommended guidelines for discontinuation of isolation with a positive COVID-19 test: - Patient has been 24 hours since resolution of fever without the use of rever- reducing medication AND - 10 days have passed since onset of symptoms AND - Symptoms are improving Recommended that if patient develops fever, shortness of breath, confusion, or any worsening symptoms, the quarantine and return to work instructions are void and they are advised to call their family physician, [facility], or Emergency Department for further evaluation and treatment. Once returning to work/school, patient should still practice infection prevention: - cover your nose and mouth, if possible with a face covering (face mask) - cover coughs and sneezes - maintain 6 foot social distance from other people - clean hands often with soap and water for 20 seconds and/or alcohol based hand vacuum tank tender - avoid touching eyes, nose, and mouth - avoid sharing items as they can spread infection If I test positive, what about those with which I have had close contact (household members, partners, close friends, etc)? Anyone with close contact (as defined above) within 48 hours prior to when the COVID-19 positive person developed symptoms should self-quarantine. This includes during the 10 day quarantine period. So, if your family is unable to isolate from you - they must wait your 10 days, plus additional quarantine as described below. If they develop symptoms - they should quarantine for the entire 14 days from their exposure to you. A negative test, while having symptoms, does not change this recommendation. If they do not develop symptoms and are no longer exposed to you: Without testing, quarantine can end after 10 days from the last exposure to a known positive COVID person. If they test negative, and their test was done at least 5 days from their last known COVID exposure, their quarantine can end after 7 days. They must continue to monitor symptoms daily for all 14 days. However, if at any time during those 14 days they develop symptoms you must self-isolate and follow up for further evaluation. Jaime Rajput [facility] 01/22/2020 Influenza Immunization Patient agreed to influenza immunization but wishes to postpone it at this time. Flu shot postponedin the chart under Health Maintenance. Client will consider. [facility] COVID-19 Mask Status: Does the patient have classic COVID-19 symptoms? Yes, the patient has COVID-19 symptoms, the patient WAS wearing a mask during the visit and I (the provider) WAS wearing full PPE (N95 mask, gown, gloves, and face shield) during the visit. Subjective 54 y.o. female presents with Covid-19 Screening (pt reports bodyaches, headache, upset stomach and runny nose x . Denies previous covid testing) Client with nausea, body aches, HUMPHRIES and runny nose. Symptoms began . No known COVID exposure. Review Of Systems Review of Systems Constitutional: Positive for chills. Negative for fever. HENT: Positive for rhinorrhea and sore throat. Negative for congestion. New loss of taste and smell. Respiratory: Positive for cough and shortness of breath. Gastrointestinal: Positive for diarrhea and nausea. Negative for vomiting. Musculoskeletal: Positive for myalgias. Neurological: Positive for headaches. Medical History Past Medical History: Diagnosis Date Disease of thyroid gland Past Surgical History: Procedure Laterality Date SECTION, LOW TRANSVERSE HERNIA REPAIR KNEE SURGERY Left TONSILLECTOMY There is no problem list on file for this patient. Social History Social History Tobacco Use Smoking status: Never Smoker Smokeless tobacco: Never Used Substance Use Topics Alcohol use: Not Currently Drug use: Not Currently Family History History reviewed. No pertinent family history. Objective Physical Exam BP (!) 155/78 Comment: recheck MKK Pulse 95 Temp 97.9 F (36.6 C) (Infrared) Resp 16 Ht 5' 4 Wt 58.5 kg (129 lb) SpO2 98% BMI 22.14 kg/m Vision/Hearing Exam:No exam data present Physical Exam Vitals signs and nursing note reviewed. Constitutional: General: She is not in acute distress. Appearance: Normal appearance. She is not ill-appearing, toxic-appearing or diaphoretic. HENT: Head: Normocephalic and atraumatic. Right Ear: Tympanic membrane, ear canal and external ear normal. Left Ear: Tympanic membrane, ear canal and external ear normal. Mouth/Throat: Mouth: Mucous membranes are moist. Pharynx: Oropharynx is clear. Cardiovascular: Rate and Rhythm: Normal rate and regular rhythm. Heart sounds: Normal heart sounds. Pulmonary: Effort: Pulmonary effort is normal. Breath sounds: Normal breath sounds. Skin: General: Skin is warm and dry. Neurological: Mental Status: She is alert and oriented to person, place, and time. GCS: GCS eye subscore is 4. GCS verbal subscore is 5. GCS motor subscore is 6. Psychiatric: Mood and Affect: Mood normal. Behavior: Behavior normal. Procedure Notes Procedures Results No results found for this or any previous visit (from the past 168 hour(s)). No orders to display Orders Placed This Visit Orders Placed This Encounter Procedures Covid-19/Influenza Order Algorithm COVID-19, Molecular Medication List At End Of Visit Current Outpatient Medications Medication Sig Dispense Refill Euthyrox 88 mcg tablet Take 88 mcg by mouth daily . LORazepam (ATIVAN) 0.5 MG tablet Take 0.5 mg by mouth daily as needed FOR ANXIETY . No current facility-administered medications for this visit. Patient Instructions Thank you for choosing [facility] for your healthcare needs today. COVID test pending. Will call only with positive result if your my chart is activitated. Otherwise will call you with results (either positive or negative). IF YOU ARE EXPERIENCING A HEADACHE AND THE HEADACHE IS THE WORST HEADACHE THAT YOU HAVE EVER EXPERIENCED OR A 'THUNDERCLAP' HEADACHE (MEANS INSTANT SEVERE ONSET) GO DIRECTLY TO THE ER. Can get at the pharmacy or store acetaminophen (tylenol) and or ibuprofen (motrin), for fever and or pain relief, if you have no contraindications for taking either medication. Follow medication labeling instructions for appropriate dosing. Any significant shortness of breath, difficulty breathing, high fevers, confusion go to the emergency room for further evaluation. Follow-up with your primary provider (or return to clinic if your do not have a primary care provider) if not better in 5 to 7 days or earlier if condition worsens. [facility] COVID-19 Post-swabbing Instructions We will do our best to update you as soon as we receive your test results, but if we had to send your test to be run at the lab, you may see the results on [employer] or receive a call from [facility] before we are able to contact you. You should receive a call from our COVID-19 results provider as soon as possible. If you test POSITIVE for COVID-19: Isolate until: - it has been 10 days since you developed symptoms AND - you have been without a fever (100.4 F) for at least 24 hours without the use of fever reducing medication AND - your symptoms are improving Isolation is when you test positive for COVID-19 and is meant to keep the infected person away fromall others, even in their own home. If you live with others, stay in a specific sick room or area and away from other people or animals, including pets. Use a separate bathroom, if available. Seek emergency medical care immediately if you develop worsening warning signs including: - trouble breathing - persistent pain or pressure in the chest - new confusion - inability to wake or stay awake - bluish lips or face It is not recommended by the CDC to have another COVID-19 test done in order to discontinue isolation or return to work/school. We can provide return to work and school documentation as needed. Once returning to work/school, you should still practice infection prevention: - cover your nose and mouth, if possible with a face covering (face mask) - cover coughs and sneezes - maintain 6 foot social distance from other people - clean hands often with soap and water for 20 seconds and/or alcohol based hand vacuum tank tender - avoid touching eyes, nose, and mouth - avoid sharing items as they can spread infection If I test positive, what about those with which I have had close contact (household members, partners, close friends, etc)? Anyone with close contact (as defined above) within 48 hours prior to when the COVID-19 positive person developed symptoms should self-quarantine. This includes during the 10 day quarantine period. So, if your family is unable to isolate from you - they must wait your 10 days, plus additional quarantine as described below. If they develop symptoms - they should quarantine for the entire 14 days from their exposure to you. A negative test, while having symptoms, does not change this recommendation. If they do not develop symptoms and are no longer exposed to you: Without testing, quarantine can end after 10 days from the last exposure to a known positive COVID person. If they test negative, and their test was done at least 5 days from their last known COVID exposure, their quarantine can end after 7 days. They must continue to monitor symptoms daily for all 14 days. However, if at any time during those 14 days they develop symptoms you must self-isolate and follow up for further evaluation. If you test NEGATIVE for COVID-19: Symptomatic for COVID-19 If you have COVID-19 symptoms (symptomatic) and you are under a 14 day quarantine because of significant exposure (which is defined as close contact with someone that has a laboratory confirmed infection from COVID-19 or a person that was diagnosed by a medical professional), then a negative COVID-19 test does not clear you from the 14 day quarantine. You were likely not clinically infectious at the time of the test. This does not mean that you will not get sick and develop symptoms. It is possible that you were in the early phase of the infection at the time of your test and you could be positive later. For these reasons: 1) If the test was due to having symptoms WITH significant exposure, you should remain in quarantine: - for the full 14 days AND - you have been without a fever (100.4 F) for at least 24 hours without the use of fever reducing medication AND - your symptoms are improving If you are unable to separate yourself completely from the COVID-19 positive person (i.e. parent caring for a child), CDC guidelines recommend you quarantine for 24 days (10 days from symptom onset of the COVID positive person PLUS 14 additional days). 2) If the test was due to symptoms WITHOUT significant exposure, you may return to work/school if: - you have been without a fever (100.4 F) for at least 24 hours without the use of fever reducing medication AND - your symptoms are improving Asymptomatic for COVID-19 If you do not have any COVID-19 symptoms (asymptomatic): 1) you and your provider may have decided together not to do asymptomatic COVID- 19 testing at this time (or your test is still pending). Your quarantine may end after 10 days if: - you remain without symptoms (without symptoms reducing medications) for the full 10 days since your last exposure to a known COVID-19 positive person - you continue to monitor symptoms for the full 14 days after exposure. If symptoms develop at any time during these 14 days, please self-isolate and contact your health care provider for further instructions as you may need further testing. 2) you and your provider may have decided together to do asymptomatic COVID-19 testing at this time. Your quarantine may end after 7 days if: - your COVID-19 test is done after day 5 (post exposure) - your COVID-19 test is negative (not detected) - you remain without symptoms (without symptom reducing medications) during your quarantine - you continue to monitor symptoms for the full 14 days after exposure. If symptoms develop at any time during these 14 days, please self-isolate and contact your health care provider for further instructions as you may need further testing. When Do I Self-Quarantine? You should quarantine if you have had a significant exposure which is defined as having been in close contact (as defined below) with someone that has a laboratory confirmed infection from COVID-19 or that person was diagnosed by a medical professional. This includes contact within 48 hours prior to when the COVID-19 positive person developed symptoms. - Quarantine is used to keep someone who might have been exposed to COVID-19 away from others. - Quarantine helps prevent spread of disease that can occur before a person knows they are sick or if they are infected with the virus without feeling symptoms. - People in quarantine should stay home, separate themselves from others, monitor their health, andfollow directions from their state or local health department. What counts as close contact? - You were within 6 feet of someone who has COVID-19 for at least 15 minutes - You provided care at home to someone who is sick with COVID-19 - You had direct physical contact with the person (touched, hugged, or kissed them) - You shared eating or drinking utensils - They sneezed, coughed, or somehow got respiratory droplets on you When and How Will I Get Results? Tests performed in the clinic will be available within 15-20 minutes from initiation of test. If your test was sent out to the lab for testing, it could take anywhere from 1-5 days after your specimen is collected. The provider/practice who placed the order for your test will notify you of your results. - If you have an active [facility] account, and your COVID-19 test is negative (not detected), then you will be notified through your [facility] account. You should call the urgent care if you have any further questions. - If your COVID-19 test is positive (detected), you will receive a phone call to discuss your results and answer any questions you might have at that time. Please make sure [facility] has your updated phone number so we can contact you. [facility] will notify the [facility] of any positive results to comply with state regulations. What Happens After I Get Tested if I Develop Worsening COVID-19 Symptoms? All patients should self-quarantine at home until they receive their test results. While self-quarantining, contact your PCP or return to the urgent care if you develop any of the following: - A fever of 103 degrees F (39.4 C) or higher - A fever that lasts more than 3 days without medication - A fever that returns after being gone for more than 24 hours - Chest pain or difficulty breathing - A worsening of current symptoms For work concerns, please contact your employer's HR department. How Do I Self-Quarantine? - Stay home until 14 days after last exposure and maintain social distance (at least 6 feet) from others at all times - Avoid contact with people at higher risk for severe illness from COVID-19 - Self-monitor for symptoms: - Check temperature twice a day - Watch for fever (100.4F or higher), cough, shortness of breath, or other CDC recognized symptoms of COVID-19 If I test positive, what about those with which I have had close contact (household members, partners, close friends, etc)? Anyone with close contact (as defined above) within 48 hours prior to when the COVID-19 positive person developed symptoms should self-quarantine. This includes during the 10 day quarantine period. So, if your family is unable to isolate from you - they must wait your 10 days, plus additional quarantine as described below. If they develop symptoms - they should quarantine for the entire 14 days from their exposure to you. A negative test, while having symptoms, does not change this recommendation. If they do not develop symptoms and are no longer exposed to you: Without testing, quarantine can end after 10 days from the last exposure to a known positive COVID person. If they test negative, and their test was done at least 5 days from their last known COVID exposure, their quarantine can end after 7 days. They must continue to monitor symptoms daily for all 14 days. However, if at any time during those 14 days they develop symptoms you must self-isolate and follow up for further evaluation. What Do I Do If I am Sick? Stay Home: If you are sick, stay home from work, school, public places, and social gatherings Social Distance: maintain 6 feet of distance from other people. Monitor Your Symptoms: If you develop fever, shortness of breath, confusion, or any respiratory symptoms, please notify your doctor immediately Cover Your Cough: Cough and sneeze into your shirt sleeve or inner elbow. Do not cough into your hands or into the air. If available, cough into a tissue and throw it into a trash can. Wash Your Hands: Wash hands often with soap and warm water and/or alcohol based hand vacuum tank tender, scrubbing your hands for at least 20 seconds. Wash your hands after sneezing or coughing, after going to the bathroom, and before eating or drinking. Wear a Mask: Wear a face mask when around others. Always wear a face mask (if able) if you have to leave your home Don't Touch: avoid touching your eyes, nose, and mouth Don't Share: avoid sharing items with others as they can spread infection Call First: If you do need to seek urgent medical care, call the facility first to let them know you are on your way Other COVID Questions? CDC - https://www.cdc.gov/coronavirus/2019-ncov/index.html - https://www.cdc.gov/coronavirus/2019-ncov/vi-ahn-uwq-sick/quarantine.html [facility] - Website: https://coronavirus.[place].gov/wps/portal/gov/covid-19/home - Hotline: 051-6-JGD-ODH (015-297-7923) Interview: https://blog.[employer]/series/eqviu-36-ulxltguxazv-toolkit/ Viral Infections: Care Instructions Your Care Instructions You don't feel well, but it's not clear what's causing it. You may have a viral infection. Viruses cause many illnesses, such as the common cold, influenza, fever, rashes, and the diarrhea, nausea, and vomiting that are often called stomach flu. You may wonder if antibiotic medicines could make you feel better. But antibiotics only treat infections caused by bacteria. They don't work on viruses. The good news is that viral infections usually aren't serious. Most will go away in a few days without medical treatment. In the meantime, there are a few things you can do to make yourself more comfortable. Follow-up care is a read part of your treatment and safety. Be sure to make and go to all appointments, and call your doctor if you are having problems. It's also a good idea to know your test resultsand keep a list of the medicines you take. How can you care for yourself at home? Get plenty of rest if you feel tired. Take an yoyf-hhn-gmvttwa pain medicine if needed, such as acetaminophen (Tylenol), ibuprofen (Advil, Motrin), or naproxen (Aleve). Read and follow all instructions on the label. Be careful when taking tkac-cxj-xefpidp cold or flu medicines and Tylenol at the same time. Many ofthese medicines have acetaminophen, which is Tylenol. Read the labels to make sure that you are nottaking more than the recommended dose. Too much acetaminophen (Tylenol) can be harmful. Drink plenty of fluids, enough so that your urine is light yellow or clear like water. If you have kidney, heart, or liver disease and have to limit fluids, talk with your doctor before you increase the amount of fluids you drink. Stay home from work, school, and other public places while you have a fever. When should you call for help? Call 911 anytime you think you may need emergency care. For example, call if: You have severe trouble breathing. You passed out (lost consciousness). Call your doctor now or seek immediate medical care if: You seem to be getting much sicker. You have a new or higher fever. You have blood in your stools. You have new belly pain, or your pain gets worse. You have a new rash. Watch closely for changes in your health, and be sure to contact your doctor if: You start to get better and then get worse. You do not get better as expected. Where can you learn more? Log into your personal health record on https://cloudControlt.[employer] and enter L906 in the Education box to learn more about Viral Infections: Care Instructions. Current as of: October 31, 2019 Content Version: 12.7 [employer]. Care instructions adapted under license by your healthcare professional. If you have questions about a medical condition or this instruction, always ask your healthcare professional. [employer] disclaims any warranty or liability for your use of this information. documented in this encounter Assessments Diagnosis Nonintractable headache, unspecified chronicity pattern, unspecified headache type- Primary Body aches Generalized pain Nausea Nausea alone Rhinorrhea Other diseases of nasal cavity and sinuses Elevated blood pressure reading Elevated blood pressure reading without diagnosis of hypertension Chief Complaint and Reason for Visit Chief Complaint 6 M FU SCREENING RIGHT SHOULDER PAIN Reason for Visit Anxiety and depressi on H/O emotional problems Hypothyroid Chief Complaint RIGHT SHOULDER PAIN RT SHOULDER STRAIN. RX HERE 6 m fu Reason for Visit Anxiety and depressi on Encounter for annual routine gynecological examination Hypothyroid Chief Complaint RT SHOULDER STRAIN. RX HERE 6 m fu Reason for Visit Anxiety and depressi on Encounter for annual routine gynecological examination Hypothyroid Chief Complaint 6 M FU SCREENING Reason for Visit Anxiety and depressi on Chief Complaint 6 M FU Reason for Visit H/O emotional proble ms Hypothyroid Chief Complaint Admit Date 6 M FU July 17, 2024 9:48 am Reason for Visit Admit Date Anxiety and depression July 17, 2024 9 :48am H/O emotional problems July 17, 2024 9 :48am Hypothyroid July 17, 2024 9:48 am Additional Source Comments INFORMATION SOURCE (unrecogn ized section and content) DATE CREATED AUTHOR 01/23/2020 [facility] DATE CREATED AUTHOR AUTHOR'S ORGANIZ ATION 07/18/2024 [facility] Reason for Visit (unrecogniz ed section and content) Reason Comments Covid-19 Screening pt reports bodyaches , headache, upset stomach and runny nose x . Denies previous covid testing Goals (unrecognized section and content) Goals may be documented in a n alternate sectionGoals may be documented in an alternate sectionGoals may be documented in an alternate sectionGoals may be documented in an alternate sectionGoals may be documented in an alternate sectionGoals may be documented in an alternate section Care Teams (unrecognized sec tion and content) Team Status: Active Member Role Status Dates Dr. Jessica Gomez DO Family Provider Active Dr. Jessica Gomez DO Primary Care Provider Active Team Status: Inactive Member Role Status Dates Dr. Jessica Gomez DO Primary Care Pr ovider, Attending Provider, Referring Provider Active Team Status: Active Member Role Status Dates Dr. Jessica Gomez DO Primary Care Provider Active Team Status: Inactive Member Role Status Dates Dr. Jessica Gomez DO Primary Care Provider Active Start: July 17, 2024 End: July 17, 2024 Dr. Jessica Gomez DO Attending Provider Active Start: July 17, 2024 End: July 17, 2024 Dr. Jessica Gomez DO Referring Provider Active Start: July 17, 2024 End: July 17, 2024 FOR RECORDS PERTAINING TO PATIENTS WHO ARE OR HAVE BEEN ENROLLED IN A CHEMICAL DEPENDENCY/SUBSTANCEABUSE PROGRAM, SOME INFORMATION MAY BE OMITTED. This clinical summary was aggregated from multiple sources. Caution should be exercised in using it in the provision of clinical care. This summary normalizes information from multiple sources, and as a consequence, information in this document may materially change the coding, format and clinical context of patient data. In addition, data may be omitted in some cases. CLINICAL DECISIONS SHOULD BE BASED ON THE PRIMARY CLINICAL RECORDS. [facility]. provides no warranty or guarantee of the accuracy or completeness of information in this document.
== END | disposition home or self-care (01) ==
LOC: OPBI 08:28
PROVIDERS: PCP Family Medicine; Referring Provider Family Medicine; Visit Provider Family Medicine
DX: Z12.31 Encounter for screening mammogram for malignant neoplasm of breast (principal)
CPT/HCPCS: 77063; 77067